=== PATIENT | male | born 1950 | race Caucasian/White ===

== ENCOUNTER 2019-07-12 08:24 | Inpatient (IN) ==
--- NOTE | 2019-07-04 20:54 | PAT Medication Instructions ---
Medication Instructions Date of Service July 04, 2019 Home Medications amlodipine 10 mg PO QAM atorvastatin [Lipitor] 20 mg PO QAM cyanocobalamin (vitamin B-12) 1,000 mcg PO QAM finasteride 5 mg PO HS gabapentin 300 mg PO QAM glimepiride 4 mg PO QAM magnesium 250 mg PO QAM multivitamin 1 tab PO QAM naproxen sodium [Aleve] 440 mg PO TID PRN omeprazole 20 mg PO 3XWK tamsulosin 0.4 mg PO HS Continue as directed omeprazole 20 mg PO 3XWK ASK your surgeon for instructions naproxen sodium [Aleve] 440 mg PO TID PRN DO NOT take the morning of surgery cyanocobalamin (vitamin B-12) 1,000 mcg PO QAM glimepiride 4 mg PO QAM magnesium 250 mg PO QAM multivitamin 1 tab PO QAM Take morning of surgery With a small sip of water, OTHERWISE NOTHING TO EAT OR DRINK AFTER MIDNIGHT: amlodipine 10 mg PO QAM atorvastatin [Lipitor] 20 mg PO QAM gabapentin 300 mg PO QAM Take evening before surgery finasteride 5 mg PO HS tamsulosin 0.4 mg PO HS Other Notes If you have any questions please call us at [phone] or [phone] or [phone] or [phone]
--- NOTE | 2019-07-05 13:57 | Anesthesiology Consultation ---
Date of Service July 05, 2019 Assessment & Plan (1) Encounter for pre-operative examination: - Check BSG AM DOS Chart Review Chart Review: Acceptable Risk for Surgery (cleared for surgery; robby sloan), Pending: Refer to Additional Notes / Consult section (pending preop testing (labs, EKG, CXR)) and Patient seen in Pre Admission Testing Teaching & Discussion Pre-Anesthesia Teaching/Discussion Notes: Instructed NPO after midnight before surgery,except medications with 15 cc of water. Medication instructions provided according to the PAT guidelines. History Surgery Operation Date: 07/12/19 10:05 Proposed Procedures p L4-L5 Decompression and Fusion, Spinal Cord Monitoring - Jc Galeas, Height/Weight Height: 5 ft 6 in Weight: 97.4 kg Allergies Allergy/AdvReac Type Severity Reaction Status Date / Time No Known Drug Allergies Allergy Unknown . Verified 06/30/19 08:21 Medications Home Medications Medication Instructions Recorded Confirmed Last Taken amlodipine 10 mg PO QAM 06/30/19 06/30/19 Unknown atorvastatin [Lipitor] 20 mg PO QAM 06/30/19 06/30/19 Unknown cyanocobalamin (vitamin B-12) 1,000 mcg PO QAM 06/30/19 06/30/19 Unknown finasteride 5 mg PO HS 06/30/19 06/30/19 Unknown gabapentin 300 mg PO QAM 06/30/19 06/30/19 Unknown glimepiride 4 mg PO QAM 06/30/19 06/30/19 Unknown magnesium 250 mg PO QAM 06/30/19 06/30/19 Unknown multivitamin 1 tab PO QAM 06/30/19 06/30/19 Unknown naproxen sodium [Aleve] 440 mg PO TID PRN 06/30/19 06/30/19 Unknown omeprazole 20 mg PO 3XWK 06/30/19 06/30/19 Unknown tamsulosin 0.4 mg PO HS 06/30/19 06/30/19 Unknown Past Medical History Medical History Arthritis BPH (benign prostatic hyperplasia) Chronic back pain RLE/groin radiculopathy Diabetes mellitus, type 2 NIDDM GERD (gastroesophageal reflux disease) controlled Hyperlipidemia Hypertension Kidney stones Obesity Sleep apnea CPAP Exercise / Class Metabolic Activity II 4-5 Yardwork/Stairs/Walk up hill Past Family History Family History Mother Family history of diabetes mellitus Past Surgical History Surgical History History of appendectomy History of colonoscopy Past Anesthesia History No Hx of Anesthesia Complications and No Family Hx of Anesthesia Complications History of PONV No Hx of PONV and No Hx of Motion Sickness Social History Smoking Status: Current every day smoker tobacco type: cigars Smoking cigarettes per day: 10 "SMALL" CIGARS/DAY X 65 YRS Do You Dip or Chew Tobacco: No Hx Alcohol Use: No Hx Substance Use: No Review of Systems Reflux controlled. Patient denies chest pain, shortness of breath, dyspnea on exertion, cough, wheezing, palpitations. Physical Exam Vital Signs VITALS BP 133/78 P 80 TEMP 98.4 SP02 96%RA RESP 18 PHYSICAL Mildly decreased cervical extension (2/2 arthritis per patient) Full TMJ range of motion. TMD 3 finger breaths Mallampati Score 2 Dentition: upper full denture, lower sides/molars missing Lungs: clear throughout to auscultation Cardiac: regular rate and rhythm, no murmurs noted Spine: normal Carotid arteries: negative bruit Extremities: no edema Testing Laboratory Results 07/05/19 14:14 07/05/19 14:14 PT 11.7 Seconds (9.0-12.0) 07/05/19 14:14 INR 1.2 (0.9-1.1) H 07/05/19 14:14 APTT 26.9 Seconds (21.0-31.0) 07/05/19 14:14 Hemoglobin A1c 6.9 % (4.5-5.6) H 07/05/19 14:14 Urine Color Yellow 07/05/19 14:14 Urine Appearance Clear (Clear) 07/05/19 14:14 Urine pH 7.0 (4.5-7.5) 07/05/19 14:14 Ur Specific [place] 1.027 (1.000-1.030) 07/05/19 14:14 Urine Protein Negative (Negative) 07/05/19 14:14 Urine Glucose (UA) 3+ (Negative) H 07/05/19 14:14 Urine Ketones Negative (Negative) 07/05/19 14:14 Urine Nitrite Negative (Negative) 07/05/19 14:14 Ur Leukocyte Esterase Negative (Negative) 07/05/19 14:14 Blood Type B Negative 07/05/19 14:14 Antibody Screen NEGATIVE 07/05/19 14:14 Electrocardiogram Date: 07/05/19 Findings: + NSR @ (75) Chest X-Ray Date: 07/05/19 Findings: + NAD
--- NOTE | 2019-07-05 14:39 | XRay Report ---
XR chest Pre-admission PA/Lat CLINICAL HISTORY: PAT preoperative COMPARISON STUDY: No previous studies for comparison. FINDINGS: The bones soft tissues and hemidiaphragms are normal. The cardiomediastinal silhouette is n ormal. The lungs are clear. The pulmonary vasculature is normal. IMPRESSION: Negative chest. The above report was generated using voice recognition software. It may contain grammatical, syntax or spelling errors. Electronically signed by: Donnie Nayak M.D. 07/05/2019 2:38 PM
[2019-07-05 15:22] LABS: Appearance Urine Clear (Clear); Bilirubin Urine Negative (Negative); Blood Urine Negative (Negative); Color Urine Yellow; Glucose Urine UA 3+ (Negative); Ketones Urine Negative (Negative); Leukocyte Esterase Urine Negative (Negative); Nitrite Urine Negative (Negative); Protein Urine Negative (Negative); Specific Gravity Urine 1.027 (1.000-1.030); Urobilinogen Urine Negative (Negative)
[2019-07-05 15:24] LABS: Basophils # (auto) 0.02 K/uL (0-0.2); Basophils % (auto) 0.3 %; Eosinophils # (auto) 0.16 K/uL (0-0.5); Eosinophils % (auto) 2.1 %; Hematocrit (blood only) 45.5 % (42-52); Hemoglobin 16.5 g/dL (14.0-18.0); Immature Granulocytes # (auto) 0.02 K/uL (0.00-0.02); Immature Granulocytes % (auto) 0.3 %; Lymphocytes # (auto) 1.88 K/uL (1.2-3.4); Lymphocytes % (auto) 24.8 %; Mean Corpuscular Hemoglobin 31.9 pg (25-34); Mean Corpuscular Hgb Conc 36.3 g/dL (32-36); Mean Platelet Volume 11.4 fL (7.4-10.4); Monocytes % (auto) 6.6 %; Neutrophils % (auto) 65.9 %; Platelet Count 159 K/uL (130-400); RDW Coefficient of Variation 13.5 % (11.5-14.5); RDW Standard Deviation 43.7 fL (36.4-46.3); Red Blood Count 5.17 M/uL (4.7-6.1); White Blood Count 7.58 K/uL (4.8-10.8)
[2019-07-05 15:27] LABS: BUN Creatinine Ratio 18.1 (10-20); Calcium 8.9 mg/dl (8.5-10.1); Creatinine Clr Calc Pharmacy 82.5 ml/min; Est GFR (African American) 98.6; Est GFR (Non-African American) 85.1; Potassium 3.7 mmol/L (3.5-5.1)
[2019-07-05 15:31] LABS: Estimated Average Glucose 151 mg/dl; Hemoglobin A1C 6.9 % (4.5-5.6)
[2019-07-05 15:33] LABS: INR 1.2 (0.9-1.1); Partial Thromboplastin Time 26.9 Seconds (21.0-31.0); Prothrombin Time 11.7 Seconds (9.0-12.0)
[~2019-07-12 08:24] MED LIST: ACETAMINOPHEN 500 MG TAB PO SCH; CEFAZOLIN 2000MG 2,000 MG/15 ML SYR IV SCH; CeleBREX 200 MG CAP PO SCH; DEXAMETHASONE SOD INJ 4 MG/ML VIAL ONE; GABAPENTIN 300 MG CAP PO SCH; HYDROmorphone INJ 2 MG/ML SYR/VIAL ONE; LIDOCAINE HCL 2% 2 ML VIAL/AMP(20MG/ML) INFIL ONE; LR 500ML BOLUS IV SCH; MIDAZOLAM HCL 1 MG/ML 2ML VIAL ONE; ONDANSETRON INJ 2 MG/ML 2 ML VIAL ONE; PROPOFOL IV EMULSION 10 MG/ML 20 ML VIAL IV ONE; fentaNYL citrate 100 MCG/2 ML VIAL ONE
--- NOTE | 2019-07-12 09:21 | History & Physical Bridge Note ---
Date of Service July 12, 2019 History & Physical Bridge Note I have examined the patient, reviewed the History & Physical and in the interval since the performance of the History & Physical I have noted the following changes of clinical significance: no changes noted
--- NOTE | 2019-07-12 09:22 | History & Physical Report ---
Date of Service July 12, 2019 Assessment & Plan (1) Neurogenic claudication due to lumbar spinal stenosis: L4-L5 decompression and fusion Present on Admission?: Yes History of Present Illness Chief Complaint: Back and leg pain Primary Care Provider: Claude Montez MD This is a 69-year-old male who presents with chronic persistent back and leg pain. After failing extensive course of nonoperative care is here for surgical intervention. Allergies Allergy/AdvReac Type Severity Reaction Status Date / Time No Known Drug Allergies Allergy Unknown . Verified 06/30/19 08:21 Home Medications Home Medications Medication Instructions Recorded Confirmed Type amlodipine 10 mg PO QAM 06/30/19 07/12/19 History atorvastatin [Lipitor] 20 mg PO QAM 06/30/19 07/12/19 History cyanocobalamin (vitamin B-12) 1,000 mcg PO QAM 06/30/19 07/12/19 History finasteride 5 mg PO HS 06/30/19 07/12/19 History gabapentin 300 mg PO QAM 06/30/19 07/12/19 History glimepiride 4 mg PO QAM 06/30/19 07/12/19 History magnesium 250 mg PO QAM 06/30/19 07/12/19 History multivitamin 1 tab PO QAM 06/30/19 07/12/19 History naproxen sodium [Aleve] 440 mg PO TID PRN 06/30/19 07/12/19 History omeprazole 20 mg PO 3XWK 06/30/19 07/12/19 History tamsulosin 0.4 mg PO HS 06/30/19 07/12/19 History Past Med/Surg History Medical History Arthritis BPH (benign prostatic hyperplasia) Chronic back pain RLE/groin radiculopathy Diabetes mellitus, type 2 NIDDM GERD (gastroesophageal reflux disease) controlled Hyperlipidemia Hypertension Kidney stones Obesity Sleep apnea CPAP Surgical History History of appendectomy History of colonoscopy Family History Mother Family history of diabetes mellitus Social History Preferred Language: Serbian Communication Ability: Effective Nurses' Association Counselor Required: No Beliefs That Will Affect Care: None Current Living Situation: Spouse Other Information That Helps Us Care for You: No Feels Safe at Home: Yes Safety Concerns: Feels Safe At This Time Smoking Status: Current every day smoker Tobacco Type: cigars ; Cigarettes Per Day: 10 "SMALL" CIGARS/DAY X 65 YRS ; Do You Dip or Chew Tobacco: No ; Second Hand Exposure: No ; Hx Alcohol Use: No Hx Substance Use: No Physical Exam Physical Exam: Patient is alert and oriented neurologically intact. Results & Data Vital Signs (Past 12 Hours) Vital Signs Temp Pulse Resp BP Pulse Ox 07/12/19 09:10 36.7 C 73 20 129/63 98
[2019-07-12] MEDS ORDERED: BUPIVACAINE/EPINEPHRINE 0.5% MPF 1:200,000 30 ML VIAL ONE (09:35)
[2019-07-12] MEDS ORDERED: BACITRACIN INJ 50,000 UNIT VIAL ONE (09:35)
[2019-07-12] MEDS ORDERED: ePHEDrine sulfate 50 MG/ML AMP IV PRN (09:40)
[2019-07-12] MEDS ORDERED: HYDROmorphone INJ 2 MG/ML SYR/VIAL IV PRN (09:40)
[2019-07-12] MEDS ORDERED: ONDANSETRON INJ 2 MG/ML 2 ML VIAL IV PRN ×2 (09:40→12:49)
[2019-07-12] MEDS ORDERED: ATROPINE SULFATE 0.1 MG/ML 10ML SYR IV PRN (09:40)
[2019-07-12] MEDS ORDERED: fentaNYL citrate 100 MCG/2 ML VIAL IV PRN (09:40)
[2019-07-12] MEDS ORDERED: FLOSEAL HEMOSTATIC MATRIX 10ML TOP ONE (10:23)
[2019-07-12] MEDS ORDERED: ROCURONIUM BROMIDE 10 MG/ML 5 ML VIAL ONE (10:27)
[2019-07-12] MEDS ORDERED: ePHEDrine sulfate 50 MG/ML SYR ONE (10:27)
[2019-07-12] MEDS ORDERED: PHENYLEPHRINE 100MCG/ML 5ML SYR ONE (10:54)
[2019-07-12] MEDS ORDERED: NEOSTIGMINE METHYLSULFATE 1 MG/ML 10ML VIAL ONE (10:54)
[2019-07-12] MEDS ORDERED: GLYCOPYRROLATE 0.2 MG/ML VIAL ONE (10:54)
--- NOTE | 2019-07-12 11:45 | Operative Report ---
Post Operative Report Pre & Post Diagnosis Operation Date: 07/12/19 10:05 Pre-Op Diagnosis: LUMBAR SPINAL STENOSIS L4-L5 WITH NEUROGENIC CLAUDICATION Spondylolisthesis L4-5. Post-Op Diagnosis: Same Procedure Operation Date: 07/12/19 10:05 Actual Procedures #1 Bilateral medial facetectomies foraminotomies L3-4 L4-5 per #2 posterior spinal fusion L4-5 per #3 placed posterior instrumentation L4-5 per #4 interbody fusion L4-5 per #5 placement of titanium 14 x 26 mm cage at L4-5 per #6 placement of local autograft in the posterior lateral gutters per #7 placement infuse collagen sponge, master graft in the posterior lateral gutters and ostial amp and interbody space. Surgeon Jc Galeas, New Car Inspector Cristina Miranda Estimated Blood Loss 100 Findings See Below The patient is 5 foot 6 inches tall weighing over 97 kg with a BMI in excess of 34. The patient's body habitus created significant technical difficulty throughout the procedure requiring her deepest retractors and longus instruments in order to perform. This added at least 50% increase in operative time. Specimens None Indications This is a 69-year-old male who presents with above-mentioned diagnosis after failing extensive course of nonoperative care is here for surgical intervention. Description of Procedure Patient was met with identified and informed consent obtained. Patient was then taken to the operative suite underwent intubation placed in a prone position the Jovanny table on top of the Geovani frame. All bony prominences well-padded eyes inspected to ensure no external pressure placed upon the peer at this point the lumbar spine was prepped and draped in normal sterile fashion. Sharp dissection with the assistance of Bovie cautery was performed down to and exposing the lamina and transverse process of L4-L5 bilaterally. Significant facet hypertrophy was noted. A complete laminectomy of L4 partial laminectomy of L3 was performed from a caudal cephalad fashion addressing severe bilateral lateral recess and foraminal disease. Pedicle screws were then placed. By way of a transforaminal approach on the right complete discectomy was performed endplates curetted to subcortical being bone and a 14 x 26 mm titanium cage filled with osteo-amp bone graft tapped in position. The rods were then compressed locked into final position bilaterally. Transverse processes of L4 and L5 bur to subcortical bleeding bone. Infuse collagen sponge master graft and local autograft placed in the posterior lateral gutters. 15 round SYDNIE drain inserted. The incision was then closed with 1 Vicryl in the fascia 2-0 Vicryl subcutaneous layer and 4-0 Monocryl for final skin closure. Steri-Strip sterile dressing was placed. Patient awakened taken to PACU stable condition. Please note Cristina Miranda present throughout the entire procedure involved in patient positioning complex portions of the surgery and final skin closure. Lastly spinal cord monitoring was utilized that the procedure no changes noted. I attest to the content of the Intraoperative Record and any orders documented therein. Any exceptions are noted below.
--- NOTE | 2019-07-12 11:53 | Fluoroscopy Report ---
LUMBAR SPINE, INTRAOPERATIVE FLUOROSCOPY HISTORY: L4-5 decompression and fusion. FLUOROSCOPY TIME: 12 seconds. FINDINGS: Intraoperative fluoroscopy was provided for the lumbar spine. 2 fluoroscopic spot images we re obtained. Posterior decompression fusion at L4-5 with pedicle screws and rods. The hardware appear s intact. IMPRESSION: Fluoroscopy provided for a L4-5 posterior decompression and fusion. Electronically signed by: Silvano Norton M.D. 07/12/2019 11:52 AM
[2019-07-12] MEDS ORDERED: ACETAMINOPHEN 1,000 MG/100 ML VIAL IV PRN (12:49)
[2019-07-12] MEDS ORDERED: DO NOT ADMINISTER PNEUMOCOCCAL VACCINE PRN (12:49)
[2019-07-12] MEDS ORDERED: DO NOT ADMINISTER FLU VACCINE PRN (12:49)
[2019-07-12] MEDS ORDERED: LORazepam 0.5 MG TAB PO PRN (12:49)
[2019-07-12] MEDS ORDERED: SOD PHOSPHATE/SOD BIPHOSPHATE ENEMA 132 ML BTL PR PRN (12:49)
[2019-07-12] MEDS ORDERED: bisacodyL 10 MG SUPP PR PRN (12:49)
[2019-07-12] MEDS ORDERED: NALOXONE HCL 0.4 MG/1 ML VIAL/CARP IV PRN (12:49)
[2019-07-12] MEDS ORDERED: ONDANSETRON 4 MG TAB PO PRN (12:49)
[2019-07-12] MEDS ORDERED: MAGNESIUM HYDROXIDE SUSP 30 ML UDC PO PRN (12:49)
[2019-07-12] MEDS ORDERED: METOCLOPRAMIDE HCL INJ 5 MG/ML 2 ML VIAL IV PRN (12:49)
[2019-07-12] MEDS ORDERED: ALUMINUM/MAGNESIUM SUSP 30 ML UDC PO PRN (12:49)
[2019-07-12] MEDS ORDERED: PROMETHAZINE HCL 12.5 MG in SODIUM CHLORIDE 0.9% 50 ML IV PRN (12:49)
[2019-07-12] MEDS ORDERED: HYDROmorphone INJ 0.5 MG/0.5 ML SYR IV PRN (12:49)
[2019-07-12] MEDS ORDERED: ACETAMINOPHEN 500 MG TAB PO PRN (12:49)
[2019-07-12] MEDS ORDERED: LORazepam 0.5 MG/1 ML VIAL IV PRN (12:49)
[2019-07-12] MEDS ORDERED: FAMOTIDINE 20 MG TAB PO PRN (12:49)
[2019-07-12] MEDS: SODIUM CHLORIDE 0.9% 1000ML 1,000 ML IV SCH ×2 (13:21→21:27)
--- NOTE | 2019-07-12 13:26 | Hospitalist Consultation ---
Date of Consultation July 12, 2019 Assessment & Plan (1) Neurogenic claudication due to lumbar spinal stenosis: s/p L4-5 decompression and fusion on 07/12 As per ortho Pre-op Hb 16.5 (2) KATELYN (obstructive sleep apnea): Has home CPAP which he is compliant with (3) Hyperlipidemia: continue home meds (4) HTN (hypertension): continue home meds (5) GERD (gastroesophageal reflux disease): continue home meds (6) DM type 2 (diabetes mellitus, type 2): PO agents only at baseline SSI PRN A1c 6.9 (7) BPH (benign prostatic hyperplasia): continue home meds (8) Nicotine abuse: Nicotine patch if ortho allows (9) DVT prophylaxis: As per ortho History of Present Illness Attending Physician: Jc Galeas DO History of Present Illness 69 y/o M who was admitted on 07/12 s/p L4-5 decompression and fusion with Dr. Galeas. Pt is doing well post-op other than he is having a high amount of back pain. He has alerted nursing and is awaiting medication for this. He has a tray in front of him but has not attempted PO intake due to not feeling hungry or like eating. Pt denies fever, SOB, chest pain, abd pain, n/v/c/d, LE pain and swelling. Allergies Allergy/AdvReac Type Severity Reaction Status Date / Time No Known Drug Allergies Allergy Unknown . Verified 06/30/19 08:21 Home Medications Home Medications Medication Instructions Recorded Confirmed Type amlodipine 10 mg PO QAM 06/30/19 07/12/19 History atorvastatin [Lipitor] 20 mg PO QAM 06/30/19 07/12/19 History cyanocobalamin (vitamin B-12) 1,000 mcg PO QAM 06/30/19 07/12/19 History finasteride 5 mg PO HS 06/30/19 07/12/19 History gabapentin 300 mg PO QAM 06/30/19 07/12/19 History glimepiride 4 mg PO QAM 06/30/19 07/12/19 History magnesium 250 mg PO QAM 06/30/19 07/12/19 History multivitamin 1 tab PO QAM 06/30/19 07/12/19 History naproxen sodium [Aleve] 440 mg PO TID PRN 06/30/19 07/12/19 History omeprazole 20 mg PO 3XWK 06/30/19 07/12/19 History tamsulosin 0.4 mg PO HS 06/30/19 07/12/19 History Patient History Medical History Arthritis BPH (benign prostatic hyperplasia) Chronic back pain RLE/groin radiculopathy Diabetes mellitus, type 2 NIDDM GERD (gastroesophageal reflux disease) controlled Hyperlipidemia Hypertension Kidney stones Sleep apnea CPAP Obesity Surgical History History of appendectomy History of colonoscopy Family History Mother Family history of diabetes mellitus Myocardial infarction Father Myocardial infarction Social History Preferred Language: Arabic Communication Ability: Effective Hospice Care Consultant Required: No Beliefs That Will Affect Care: None Current Living Situation: Spouse Other Information That Helps Us Care for You: No Feels Safe at Home: Yes Safety Concerns: Feels Safe At This Time Smoking Status: Current every day smoker Tobacco Type: cigars ; Cigarettes Per Day: 10 "SMALL" CIGARS/DAY X 65 YRS ; Do You Dip or Chew Tobacco: No ; Second Hand Exposure: No ; Hx Alcohol Use: No Hx Substance Use: No Review of Systems Review of Systems: Pertinent positives and negatives reviewed in HPI--all others negative Physical Exam Constitutional: WD/WN, vitals as above Eyes: normal visual morales by confrontation and + anicteric sclerae Neck: normal visual inspection and trachea midline Respiratory: normal respiratory effort, lungs clear to auscultation Cardiovascular: Rate/Rhythm: regular rate and regular rhythm Gastrointestinal (Abdomen): Inspection/Auscultation: abdomen not distended Percussion/Palpation: abdomen soft; abdomen nontender Musculoskeletal: Head/Neck/Chest: normocephalic and head atraumatic negative for edema, peripheral pulses intact Skin: no rashes, warm and dry Neurologic: awake; not confused Speech / Cognition: normal speech Psychiatric: A+Ox3, euthymic affect Results & Data Vital Signs (Past 12 Hours) Vital Signs Temp Pulse Pulse Resp BP Pulse Ox 07/12/19 13:19 75 15 121/68 98 07/12/19 12:50 36.5 C 75 16 126/70 99 07/12/19 12:35 36.4 C L 72 16 119/77 98 07/12/19 12:25 70 13 131/70 97 07/12/19 12:15 83 17 135/72 97 07/12/19 12:05 74 13 135/73 99 07/12/19 11:56 36.3 C L 78 12 128/64 97 07/12/19 09:10 36.7 C 73 20 129/63 98 Diagnostic Findings CXR: neg for acute PG Care Time/CCT Total # of Minutes Spent Total Time Spent with Patient: Total time spent is greater than 50% in coordination of care (as documented) at patient's floor/unit and/or counseling patient:
--- NOTE | 2019-07-12 13:30 | Anesthesiology Progress Note ---
Date of Service July 12, 2019 Anesthesia Post Procedure Vital Signs Vital Signs: Temp Pulse Pulse Resp BP Pulse Ox 07/12/19 13:19 75 15 121/68 98 07/12/19 12:50 36.5 C 75 16 126/70 99 07/12/19 12:35 36.4 C L 72 16 119/77 98 07/12/19 12:25 70 13 131/70 97 07/12/19 12:15 83 17 135/72 97 07/12/19 12:05 74 13 135/73 99 07/12/19 11:56 36.3 C L 78 12 128/64 97 07/12/19 09:10 36.7 C 73 20 129/63 98 Pain Intensity Lower Back: Pain Intensity: 6 Transfer of Care Handoff Completed per policy Notes Mental Status: alert / awake / arousable and participated in evaluation Patient Amnestic to Procedure: Yes Nausea / Vomiting: adequately controlled Pain: adequately controlled Airway Patency, RR, SpO2: stable & adequate BP & HR: stable & adequate Hydration State: stable & adequate Anesthetic Complications: no major complications apparent and Pt Satisfied with anesthetic care
[2019-07-12] MEDS: KETOROLAC TROMETHAMINE 15 MG/ML VIAL IV SCH ×2 (13:50→21:09)
[2019-07-12] MEDS: PANTOprazole 40 MG TAB PO SCH (13:50)
[2019-07-12] MEDS: TRAMADOL HCL 50 MG TABLET PO PRN (14:11)
[2019-07-12] MEDS: OXYCODONE HCL IR 5 MG TAB (IMMEDIATE RELEASE) PO PRN (16:54)
[2019-07-12] MEDS ORDERED: GLUCAGON FOR INJ 1 MG VIAL SQ PRN (17:58)
[2019-07-12] MEDS ORDERED: GLUCOSE 40% GEL 15 GM TUBE PO PRN (17:58)
[2019-07-12] MEDS ORDERED: CARBOHYDRATES FOR HYPOGLYCEMIA PO PRN (17:58)
[2019-07-12] MEDS ORDERED: GLUCOSE 10 TABS/TUBE PO PRN (17:58)
[2019-07-12] MEDS ORDERED: DEXTROSE 50% 50 ML SYRINGE IV PRN (17:58)
[2019-07-12] MEDS: CEFAZOLIN 2000MG 2,000 MG/15 ML SYR IV SCH (18:27)
[2019-07-12] MEDS: INSULIN ASPART 100 UNITS/ML 3 ML PEN SC SCH ×2 (18:45→21:20)
[2019-07-12] MEDS ORDERED: INSULIN ASPART 100 UNITS/ML 3 ML PEN SC SCH (21:00)
[2019-07-12] MEDS: FINASTERIDE 5 MG TAB PO SCH (21:10)
[2019-07-12] MEDS: DOCUSATE SODIUM/SENNA 50/8.6MG TAB PO SCH (21:10)
[2019-07-12] MEDS: TAMSULOSIN HCL 0.4 MG CAP PO SCH (21:10)
[2019-07-13] MEDS: CEFAZOLIN 2000MG 2,000 MG/15 ML SYR IV SCH (01:29)
[2019-07-13] MEDS: KETOROLAC TROMETHAMINE 15 MG/ML VIAL IV SCH ×2 (01:29→08:29)
[2019-07-13] MEDS: SODIUM CHLORIDE 0.9% 1000ML 1,000 ML IV SCH (03:47)
[2019-07-13] MEDS: OXYCODONE HCL IR 5 MG TAB (IMMEDIATE RELEASE) PO PRN ×3 (05:51→22:42)
[2019-07-13] MEDS: POLYETHYLENE (MIRALAX) 17 GM PACK PO SCH ×4 (05:51→22:42)
[2019-07-13 06:41] LABS: Hematocrit (blood only) 39.2 % (42-52); Hemoglobin 14.2 g/dL (14.0-18.0); Immature Granulocytes # (auto) 0.02 K/uL (0.00-0.02); Immature Granulocytes % (auto) 0.2 %; Lymphocytes # (auto) 1.21 K/uL (1.2-3.4); Lymphocytes % (auto) 9.7 %; Mean Corpuscular Hemoglobin 31.6 pg (25-34); Mean Corpuscular Hgb Conc 36.2 g/dL (32-36); Mean Corpuscular Volume 87.3 fL (80-100); Mean Platelet Volume 11.3 fL (7.4-10.4); Monocytes # (auto) 0.83 K/uL (0.11-0.59); Monocytes % (auto) 6.7 %; Neutrophils # (auto) 10.36 K/uL (1.4-6.5); Neutrophils % (auto) 83.4 %; Platelet Count 147 K/uL (130-400); RDW Standard Deviation 41.8 fL (36.4-46.3); Red Blood Count 4.49 M/uL (4.7-6.1); White Blood Count 12.42 K/uL (4.8-10.8)
[2019-07-13 07:10] LABS: BUN Creatinine Ratio 24.1 (10-20); Calcium 8.7 mg/dl (8.5-10.1); Creatinine Clr Calc Pharmacy 88.3 ml/min; Est GFR (African American) 102.3; Est GFR (Non-African American) 88.3; Potassium 4.1 mmol/L (3.5-5.1)
[2019-07-13] MEDS: MAGNESIUM OXIDE 400 MG TAB PO SCH (08:28)
[2019-07-13] MEDS: GABAPENTIN 300 MG CAP PO SCH (08:28)
[2019-07-13] MEDS: ATORVASTATIN 20 MG TAB PO SCH (08:29)
[2019-07-13] MEDS: AMLODIPINE BESYLATE 5 MG TAB PO SCH (08:29)
[2019-07-13] MEDS: GLIMEPIRIDE 2 MG TAB PO SCH (08:29)
[2019-07-13] MEDS: MULTIVITAMIN TAB PO SCH (08:29)
[2019-07-13] MEDS: CYANOCOBALAMIN 500 MCG TABLET (VITAMIN B-12) PO SCH (08:29)
[2019-07-13] MEDS: INSULIN ASPART 100 UNITS/ML 3 ML PEN SC SCH ×4 (08:32→21:03)
--- NOTE | 2019-07-13 08:35 | Orthopedic Progress Note ---
Date of Service July 13, 2019 Assessment & Plan (1) Neurogenic claudication due to lumbar spinal stenosis: This time initiate physical therapy advance his bowel regiment hopefully discharge home next few days. Present on Admission?: Yes Subjective Back pain is controlled leg pain improved. Physical Exam Physical Exam: Patient is sitting upright in bed. He has good strength testing. Appears comfortable. Results & Data Vital Signs (Past 12 Hours) Vital Signs Temp Pulse Resp BP Pulse Ox 07/13/19 07:19 36.6 C 66 16 120/69 94 07/13/19 03:46 36.8 C 74 16 130/72 96 07/12/19 23:10 37.2 C 84 16 124/65 97
--- NOTE | 2019-07-13 08:48 | Anesthesiology Progress Note ---
Date of Service July 13, 2019 Anesthesia Post Procedure Vital Signs Vital Signs: Temp Pulse Pulse Resp BP Pulse Ox 07/13/19 07:19 36.6 C 66 16 120/69 94 07/13/19 03:46 36.8 C 74 16 130/72 96 07/12/19 23:10 37.2 C 84 16 124/65 97 07/12/19 19:18 36.7 C 83 16 132/68 95 07/12/19 15:48 36.7 C 84 16 122/64 95 07/12/19 15:11 36.5 C 79 16 134/75 94 07/12/19 13:50 84 20 132/75 95 07/12/19 13:19 75 15 121/68 98 07/12/19 12:50 36.5 C 75 16 126/70 99 07/12/19 12:35 36.4 C L 72 16 119/77 98 07/12/19 12:25 70 13 131/70 97 07/12/19 12:15 83 17 135/72 97 07/12/19 12:05 74 13 135/73 99 07/12/19 11:56 36.3 C L 78 12 128/64 97 07/12/19 09:10 36.7 C 73 20 129/63 98 Pain Intensity Lower Back: Pain Intensity: 5 Notes Mental Status: alert / awake / arousable Patient Amnestic to Procedure: Yes Nausea / Vomiting: adequately controlled Pain: improving with treatment Airway Patency, RR, SpO2: stable & adequate BP & HR: stable & adequate Hydration State: stable & adequate Anesthetic Complications: no major complications apparent
[2019-07-13] MEDS: DOCUSATE SODIUM/SENNA 50/8.6MG TAB PO SCH (21:02)
[2019-07-13] MEDS: FINASTERIDE 5 MG TAB PO SCH (21:02)
[2019-07-13] MEDS: TAMSULOSIN HCL 0.4 MG CAP PO SCH (21:02)
[2019-07-14] MEDS: POLYETHYLENE (MIRALAX) 17 GM PACK PO SCH ×2 (05:55→13:09)
[2019-07-14] MEDS: AMLODIPINE BESYLATE 5 MG TAB PO SCH (08:42)
[2019-07-14] MEDS: MAGNESIUM OXIDE 400 MG TAB PO SCH (08:42)
[2019-07-14] MEDS: MULTIVITAMIN TAB PO SCH (08:42)
[2019-07-14] MEDS: CYANOCOBALAMIN 500 MCG TABLET (VITAMIN B-12) PO SCH (08:43)
[2019-07-14] MEDS: PANTOprazole 40 MG TAB PO SCH (08:43)
[2019-07-14] MEDS: GABAPENTIN 300 MG CAP PO SCH (08:43)
[2019-07-14] MEDS: ATORVASTATIN 20 MG TAB PO SCH (08:43)
[2019-07-14] MEDS: GLIMEPIRIDE 2 MG TAB PO SCH (08:43)
[2019-07-14] MEDS: INSULIN ASPART 100 UNITS/ML 3 ML PEN SC SCH ×4 (08:45→21:12)
[2019-07-14] MEDS: TRAMADOL HCL 50 MG TABLET PO PRN ×3 (08:45→21:11)
--- NOTE | 2019-07-14 13:58 | Orthopedic Progress Note ---
Date of Service July 14, 2019 Assessment & Plan (1) Neurogenic claudication due to lumbar spinal stenosis: This time we will continue physical therapy monitor his SYDNIE output anticipate discharge home tomorrow. Present on Admission?: Yes Subjective Back and leg pain is markedly improved. Physical Exam Physical Exam: Patient is in the chair at bedside. Is good strength testing. Appears comfortable. Results & Data Vital Signs (Past 12 Hours) Vital Signs Temp Pulse Resp BP Pulse Ox 07/14/19 07:55 36.7 C 61 16 123/79 99
[2019-07-14] MEDS: FINASTERIDE 5 MG TAB PO SCH (21:09)
[2019-07-14] MEDS: DOCUSATE SODIUM/SENNA 50/8.6MG TAB PO SCH (21:09)
[2019-07-14] MEDS: TAMSULOSIN HCL 0.4 MG CAP PO SCH (21:09)
--- NOTE | 2019-07-14 22:59 | Hospitalist Progress Note ---
Date of Service July 14, 2019 Assessment & Plan (1) Neurogenic claudication due to lumbar spinal stenosis: Medicine will sign off. No new issues s/p L4-5 decompression and fusion on 07/12 As per ortho (2) KATELYN (obstructive sleep apnea): Has home CPAP which he is compliant with. (3) Hyperlipidemia: continue home meds (4) HTN (hypertension): continue home meds (5) GERD (gastroesophageal reflux disease): continue home meds (6) DM type 2 (diabetes mellitus, type 2): PO agents only at baseline SSI PRN A1c 6.9 (7) BPH (benign prostatic hyperplasia): continue home meds (8) Nicotine abuse: Nicotine patch if ortho allows (9) DVT prophylaxis: As per ortho Subjective Patient has no new complaints today. Review of Systems Review of Systems: All systems reviewed & are unremarkable except as noted in HPI & below Physical Exam Physical Exam: Constitutional: WD/WN, vitals as above Eyes: normal visual morales by confrontation and + anicteric sclerae Neck: normal visual inspection and trachea midline Respiratory: normal respiratory effort, lungs clear to auscultation Cardiovascular: Rate/Rhythm: regular rate and regular rhythm Gastrointestinal (Abdomen): Inspection/Auscultation: abdomen not distended Percussion/Palpation: abdomen soft; abdomen nontender Musculoskeletal: Head/Neck/Chest: normocephalic and head atraumatic negative for edema, peripheral pulses intact Skin: no rashes, warm and dry Neurologic: awake; not confused Speech / Cognition: normal speech Psychiatric: A+Ox3, euthymic affect Results & Data Vital Signs (Past 12 Hours) Vital Signs Temp Pulse Resp BP BP Pulse Ox 07/14/19 15:22 100/61 07/14/19 15:17 36.6 C 66 16 97/58 L 96 PG Care Time/CCT Total # of Minutes Spent Total Time Spent with Patient: Total time spent is greater than 50% in coordination of care (as documented) at patient's floor/unit and/or counseling patient:
[2019-07-15] MEDS: AMLODIPINE BESYLATE 5 MG TAB PO SCH (08:59)
[2019-07-15] MEDS: TRAMADOL HCL 50 MG TABLET PO PRN (08:59)
[2019-07-15] MEDS: ATORVASTATIN 20 MG TAB PO SCH (08:59)
[2019-07-15] MEDS: MAGNESIUM OXIDE 400 MG TAB PO SCH (09:00)
[2019-07-15] MEDS: GLIMEPIRIDE 2 MG TAB PO SCH (09:00)
[2019-07-15] MEDS: GABAPENTIN 300 MG CAP PO SCH (09:00)
[2019-07-15] MEDS: CYANOCOBALAMIN 500 MCG TABLET (VITAMIN B-12) PO SCH (09:00)
[2019-07-15] MEDS: MULTIVITAMIN TAB PO SCH (09:01)
[2019-07-15] MEDS: INSULIN ASPART 100 UNITS/ML 3 ML PEN SC SCH (09:02)
--- NOTE | 2019-07-15 11:59 | Discharge Summary ---
Date of Service July 15, 2019 Admission HPI Per Admitting Provider This is a 69-year-old male who presents with chronic persistent back and leg pain. After failing extensive course of nonoperative care is here for surgical intervention. Principal Diagnosis Lumbar spinal stenosis with neurogenic claudication Discharge Data Allergies Allergy/AdvReac Type Severity Reaction Status Date / Time No Known Drug Allergies Allergy Unknown . Verified 06/30/19 08:21 Consultations 07/12/19 12:49 Consult Case Management - Discharge Planning Routine Consult Hospitalist Routine Procedures Performed Operation Date: 07/12/19 10:05 Actual Procedures p L4-L5 Decompression and Fusion, Spinal Cord Monitoring - Jc Galeas DO Ordered Studies 07/12/19 10:05 FL fluoroscopy <1hr Routine FL lumbar spine 2-3V Routine Hospital Course (1) Neurogenic claudication due to lumbar spinal stenosis: Patient underwent lumbar decompression fusion tolerated as well as taken to orthopedic for possibly. Postop pain when he was up and ambulating nicely. Progressive postop day #2. SYDNIE to decreasing appropriately. Subsequently discharged home postop day #3 he did demonstrate neurologically intact ambulate in halls. . Discharge orders instructions from the chart for further review. Total Time Total Time Spent Total Time Spent (In Minutes): 20 minutes Discharge Plan Discharge Items Patient Disposition: Home - Self-Care Reason For Visit: LUMBAR SPINAL STENOSIS W/NEUROGENIC CLAUDICATION Discharge Diagnosis: Lumbar spinal stenosis with neurogenic claudication Activity: Per Instructions section Non-emergency contact: Primary Care Provider Call non-emergency contact if: you have any medication questions Follow-up/Referrals: Claude Montez MD [Primary Care Provider] - Diet: Regular Addtl Attending Provider Instructions: ACTIVITY RECOMMENDATIONS: SELF CARE INSTRUCTIONS AFTER THORACIC/LUMBAR FUSIONS 1. You may walk to your tolerance. It is good exercise for your legs and back. Expect some back and intermittent leg aches and pains. 2. You may perform "counter-top" level activities (make a sandwich, matt with a project, etc.). 3. No bending or lifting of more than 10 pounds or back twisting of any nature (roll like a log when turning in bed). 4. You may ride in a car for 20-30 minutes at a time. No driving until after your first visit with your doctor. 5. Frequent changes of position and restricting sitting to 30 minutes at a time will help limit the amount of back spasms and stiffness you may experience. 6. You may discontinue the use of ambulatory aids (cane, crutches, etc.) once your strength and confidence allow. 7. You may engineering test mechanic the shower and let water strike your incision when you arrive home at least once daily. Do not take a tub bath, sit in a hot tub or go into a swimming pool until after your first recheck in the office. SPECIAL CARE INSTRUCTIONS: VERY IMPORTANT TO READ AND REVIEW A. Your surgical incision has been closed with a cosmetic suture under the skin that will dissolve in about 6 weeks. In 14 days, you can use a pair of clean scissors and cut the suture that is left outside of the skin at the ends of your incision. 1. The small skin tapes can be removed 7 days after surgery if they have not fallen off by that point. 2. You may keep the wound open to air as much as possible to promote healing after post-op day number 5 unless told otherwise by your doctor. 3. If you think the wound looks like it is becoming infected (redness or worsening drainage) and/or you are experiencing fever, chill or worsening back pain and muscle spasms, contact the office so that we may evaluate you as soon as possible. B. Complications are uncommon, but please contact us if you have any signs or symptoms of: 1. wound infection (fever higher than 102.5 degrees F, redness, separation of wound, drainage, or increasing pain from the incision) 2. blood clots in legs (pain, swelling, redness and warmth in legs) 3. urinary tract infection (fever higher than 102.5 degrees F, burning upon urination or increased frequency of urination) 4. nerve problems (inability to walk on your toes or heels, numbness, loss of bowel or bladder control) 5. any other symptoms that concern you C. Please call the office at if you have any concerns or questions about your operation or recovery. D. No smoking! Smoking drastically decreases the chance of a solid fusion. E. Do not take any anti-inflammatory medications (Indocin, Advil, Motrin, Aspir in, Naprosyn, etc.) as these may inhibit the chance of a solid fusion. Tylenol is okay to take for pain. MANAGING PAIN AFTER SPINAL SURGERY 1. Narcotic medication is intended for short-term use and will be provided for surgical pain. Surgical pain usually lasts for a period of 4-6 weeks. Narcotic medication includes Percocet, Vicodin, Darvocet, Tylenol #3 or Lortab. 2. Longer-term pain is more appropriately treated with non-narcotic medication such as Tylenol ES. 3. Muscle spasm is not appropriately treated with narcotics. Muscle relaxers such as Soma, Flexeril or Skelaxin can be used along with Tylenol ES. 4. Remember that we all live with some "aches and pains". This is not unusual or uncommon after an injury or as we get older. a. Back pain is expected and may include muscle spasms for 4 to 6 weeks after surgery. The pain should gradually improve. If the pain worsens for no apparent reason, please contact the office. b. Intermittent leg pain may also be experienced and should not be concerned about unless it worsens for no apparent reason. If so, please contact the office. 5. We will provide appropriate medication within the normal guidelines of their prescribed use. We will also be very cautious and aware of potential abuse and extended duration of patients' medication needs. a. Pain medications are for your comfort and to assist with sleep and rest so that the tissue can heal. They are not provided in order to return to normal activity and should not be used through the day. To do so or worsening pain at night can result from ongoing tissue damage and development of tolerance to the prescribed medicine. 6. Please allow 2-3 days to process refills. Prescriptions will not be mailed but must be picked up at the office. FOLLOW UP VISIT: Keep your scheduled follow-up appointment. Any questions, please call the office at . Pending Studies at Discharge: No Stand-Alone Forms: My [facility], Opioid Pain Management Medications and DC Order Prescriptions: New tramadol 50 mg Tablet 50 mg PO Q4H PRN (Reason: Pain, Moderate) Qty: 30 RF: 0 oxycodone 5 mg Tablet 5 mg PO Q4H PRN (Reason: Pain, Severe) Qty: 30 RF: 0 Continued multivitamin Tablet 1 tab PO QAM RF: 0 atorvastatin [Lipitor] 20 mg Tablet 20 mg PO QAM RF: 0 amlodipine 10 mg Tablet 10 mg PO QAM RF: 0 omeprazole 20 mg Capsule,Delayed Release(Dr/Ec) 20 mg PO 3XWK RF: 0 magnesium 250 mg Tablet 250 mg PO QAM RF: 0 tamsulosin 0.4 mg Capsule 0.4 mg PO HS RF: 0 glimepiride 4 mg Tablet 4 mg PO QAM RF: 0 gabapentin 100 mg Capsule 300 mg PO QAM RF: 0 finasteride 5 mg Tablet 5 mg PO HS RF: 0 naproxen sodium [Aleve] 220 mg Capsule 440 mg PO TID PRN (Reason: Pain) RF: 0 cyanocobalamin (vitamin B-12) 1,000 mcg Capsule 1,000 mcg PO QAM RF: 0 Discharge Orders: Discharge Order (Routine); Ordered 07/15/19 Ordered By: Jc Wade/Other Patient Handouts: DVT Prevent Admission Data Admit Date/Time: 07/12/19 11:49 Attending Provider: Jc Galeas Admit Provider: Jc Galeas Primary Care Provider: Claude Montez Other Providers: Girish Pierre Other Interventions: Discharge Summary Assessment (RN) Last Done: 07/15/19 10:22 DC Date/Time DO NOT enter until pt leaves facility: 07/15/19 11:49
== END 2019-07-15 11:49 | disposition home or self-care (01) | DRG 455 ==
LOC: ASU 08:24 → 3E 11:49
DX: E78.5 Hyperlipidemia, unspecified; I10 Essential (primary) hypertension; N40.0 Benign prostatic hyperplasia without lower urinary tract symptoms; E11.9 Type 2 diabetes mellitus without complications; K21.9 Gastro-esophageal reflux disease without esophagitis; M48.062 Spinal stenosis, lumbar region with neurogenic claudication; Z68.34 Body mass index [BMI] 34.0-34.9, adult; Z79.899 Other long term (current) drug therapy; Z79.84 Long term (current) use of oral hypoglycemic drugs; E66.9 Obesity, unspecified; F17.290 Nicotine dependence, other tobacco product, uncomplicated; G47.33 Obstructive sleep apnea (adult) (pediatric)

== ENCOUNTER 2019-09-19 17:20 | Inpatient (IN) ==
[2019-09-19] MEDS ORDERED: SODIUM CHLORIDE 0.9% 1000ML 1,000 ML IV ONE (17:50)
[2019-09-19 18:15] LABS: Basophils # (auto) 0.01 K/uL (0-0.2); Basophils % (auto) 0.1 %; Eosinophils # (auto) 0.05 K/uL (0-0.5); Eosinophils % (auto) 0.7 %; Hematocrit (blood only) 39.2 % (42-52); Immature Granulocytes # (auto) 0.03 K/uL (0.00-0.02); Immature Granulocytes % (auto) 0.4 %; Lymphocytes # (auto) 0.64 K/uL (1.2-3.4); Lymphocytes % (auto) 8.4 %; Mean Corpuscular Hemoglobin 30.4 pg (25-34); Mean Corpuscular Hgb Conc 35.7 g/dL (32-36); Mean Corpuscular Volume 85.2 fL (80-100); Mean Platelet Volume 11.1 fL (7.4-10.4); Monocytes % (auto) 7.9 %; Neutrophils # (auto) 6.29 K/uL (1.4-6.5); Neutrophils % (auto) 82.5 %; Platelet Count 108 K/uL (130-400); RDW Coefficient of Variation 13.1 % (11.5-14.5); RDW Standard Deviation 40.5 fL (36.4-46.3); White Blood Count 7.62 K/uL (4.8-10.8)
[2019-09-19] MEDS ORDERED: ONDANSETRON INJ 2 MG/ML 2 ML VIAL IV STA (18:48)
[2019-09-19] MEDS ORDERED: MoRPHine SULFATE 4 MG/ML 1 ML CARP\\VIAL IV STA (18:48)
[2019-09-19 19:07] LABS: Albumin Globulin Ratio 0.8 (0.9-2); Albumin Level 3.1 gm/dl (3.4-5.0); BUN Creatinine Ratio 17.4 (10-20); Bilirubin,Total 0.8 mg/dl (0.2-1); Calcium 8.9 mg/dl (8.5-10.1); Creatinine Clr Calc Pharmacy 74.2 ml/min; Est GFR (African American) 90.2; Est GFR (Non-African American) 77.8; Globulin 3.9 gm/dl (2.5-4.0); Potassium 3.5 mmol/L (3.5-5.1)
[2019-09-19] MEDS ORDERED: NovoLIN-R INSULIN PER UNIT CHARGE IV STA ×2 (19:13→19:27)
[2019-09-19] MEDS ORDERED: cefTRIAXone SODIUM 1,000 MG/50 ML BAG IV STA (19:17)
[2019-09-19 19:20] LABS: Beta-Hydroxybutyrate 3.63 mg/dl (0.2-2.81)
[2019-09-19] MEDS ORDERED: HYDROmorphone INJ 0.5 MG/0.5 ML SYR IV STA (19:27)
--- NOTE | 2019-09-19 19:49 | Emergency Department Note ---
Entered by Angelina Mortensen acting as a scribe for Uriel Manrique DO History of Present Illness General Chief complaint: Urinary Symptoms Stated complaint: UTI, SYMPTOMS WORSE TODAY History of Present Illness Provider complaint: urinary symptoms Onset (ago): day(s) 3 Pain Consistency: + other (worsening) Maximum Pain Intensity: 5 Quality: + other (urinary symptoms) Relieved By: not by medication (antibiotics) Associated symptoms: + fever/chills (102.8 F) and + other (burning upon urination, increased urinary frequency, urinating every 30 minutes, diagnosed with UTI, back pain 10 weeks post surgery) The patient is a 69 year old male with PMHx of GERD, hypertension, chronic back pain and kidney stones who presents to the ED with complaints of worsening urinary symptoms that started 3 days ago. The patient states that he has burning upon urination, increased urinary frequency and abdominal pain. The patient states that he urinates approximately every 30 minutes. The patient states that he has also had chills and a fever of 102.8 F. The patient states that he was seen here yesterday for the same reason and was diagnosed with a UTI. The patient states that he was prescribed antibiotics and he has started taking them but he denies relief. The patient states that he also has back pain because he had back surgery approximately 10 weeks ago. Home Medications Home Medications Medication Instructions Recorded Confirmed Type amlodipine [Norvasc] 10 mg PO QAM 06/30/19 09/19/19 History atorvastatin [Lipitor] 20 mg PO QAM 06/30/19 09/19/19 History cyanocobalamin (vitamin B-12) 1,000 mcg PO QAM 06/30/19 09/19/19 History finasteride [Proscar] 5 mg PO HS 06/30/19 09/19/19 History gabapentin [Neurontin] 300 mg PO QAM 06/30/19 09/19/19 History glimepiride [Amaryl] 4 mg PO QAM 06/30/19 09/19/19 History magnesium 250 mg PO QAM 06/30/19 09/19/19 History multivitamin 1 tab PO QAM 06/30/19 09/19/19 History omeprazole 20 mg PO 3XWK 06/30/19 09/19/19 History tamsulosin [Flomax] 0.4 mg PO HS 06/30/19 09/19/19 History cefdinir 300 mg PO BID 10 Days #20 cap 09/18/19 09/19/19 Rx phenazopyridine [Pyridium] 200 mg PO TID PRN 09/19/19 09/19/19 History Allergies Allergy/AdvReac Type Severity Reaction Status Date / Time No Known Drug Allergies Allergy Unknown . Verified 09/19/19 17:59 Past Med/Surg History Medical History (Updated 09/19/19 @ 20:10 by Uriel Manrique DO) Arthritis BPH (benign prostatic hyperplasia) Chronic back pain RLE/groin radiculopathy Diabetes mellitus, type 2 NIDDM GERD (gastroesophageal reflux disease) controlled Hyperlipidemia Hypertension Kidney stones Obesity Sleep apnea CPAP Surgical History (Updated 09/19/19 @ 20:02 by Angelina Mortensen) History of appendectomy History of back surgery History of colonoscopy Social History Preferred Language: French Communication Ability: Effective Pcat Instructor Required: No Beliefs That Will Affect Care: None marital status: Current Living Situation: Spouse Feels Safe at Home: Yes Smoking Status: Former smoker Tobacco Type: cigars ; Cigarettes Per Day: 10 "SMALL" CIGARS/DAY X 65 YRS ; Second Hand Exposure: No ; Hx Alcohol Use: No Hx Substance Use: No Review of Systems See HPI for pertinent positives & negatives. and A total of 10 systems reviewed and were otherwise negative Physical Exam Vital Signs Vital Signs - 24 hr 09/19/19 17:27 09/19/19 18:17 09/19/19 18:30 Temperature 37.8 C H Temperature Source Oral Pulse Rate 93 H Pulse Rate [Apical] 87 89 Pulse Rhythm [Apical] Regular Regular Respiratory Rate 18 18 18 Respiratory Effort / Characteristics Non-Labored Spontaneous Non-Labored Spontaneous Respiratory Depth Normal Normal Respiratory Pattern Regular Regular Blood Pressure 117/65 Blood Pressure [Left Arm] 131/76 149/77 H Blood Pressure Mean 82 Blood Pressure Mean [Left Arm] 94 101 Blood Pressure Position Sitting Pulse Oximetry 98 94 94 Oxygen Delivery Method Room Air Room Air Room Air Sepsis Recent Fever Within 48 Hours No Sepsis Action Taken by Nursing No Action Required 09/19/19 19:32 09/19/19 19:36 Temperature 37.7 C H Temperature Source Oral Pulse Rate Pulse Rate [Apical] 85 Pulse Rhythm [Apical] Respiratory Rate 26 H Respiratory Effort / Characteristics Respiratory Depth Normal Respiratory Pattern Blood Pressure Blood Pressure [Left Arm] 140/66 Blood Pressure Mean Blood Pressure Mean [Left Arm] 90 Blood Pressure Position Pulse Oximetry 95 Oxygen Delivery Method Room Air Sepsis Recent Fever Within 48 Hours Sepsis Action Taken by Nursing GENERAL: Sitting up in bed, alert, mild distress EYE EXAM: normal conjunctiva. OROPHARYNX: no exudate, no erythema, lips, buccal mucosa, and tongue normal and mucous membranes are moist NECK: supple, no nuchal rigidity, no adenopathy, non-tender LUNGS: Clear to auscultation. Normal chest wall mechanics HEART: no murmurs, S1 normal and S2 normal ABDOMEN: abdomen soft, non-tender, normo-active bowel sounds, no masses, no rebound or guarding. BACK: Back is symmetrical on inspection and there is no deformity, no midline tenderness, no CVA tenderness, old midline incision SKIN: no rashes and no bruising UPPER EXTREMITIES: upper extremities are grossly normal. LOWER EXTREMITIES: No pitting edema. NEURO EXAM: Normal sensorium, cranial nerves II-XII grossly intact, normal speech, no gross weakness of arms, no gross weakness of legs. Course Course ED COURSE: Vital signs were reviewed and showed tachycardia and febrile The patients medical record was reviewed The above diagnostic studies were performed and reviewed. ED treatments and interventions as stated above. 173: The patient was evaluated in room A09B. A complete history and physical examination was performed. 1900: I updated the patient on the test results. He states that he is having more back pain. 1915: I reevaluated the patient and he states that he is not feeling well and would like to stay in the hospital. 1917: I discussed the patient's case with Dr. Wolf [facility] Hospitalist. He will evaluate the patient for further management. 192: Upon reevaluation, the patient is still experiencing discomfort. I discussed my findings with the patient and he understands and agrees with the treatment plan. Based on the patients age, coexisting illnesses, exam and lab findings the decision to treat as an inpatient was made. The patient remained stable while under my care. The patient will be evaluated for further management. Consultations Consultation #1: I discussed the patient's case with Dr. Wolf [facility] Hospitalist. He will evaluate the patient for further management. Time: 19:18 Administered Medications Discontinued Medications Hydromorphone HCl (Dilaudid) 0.5 mg IV NOW STA Stop: 09/19/19 19:28 Last Admin: 09/19/19 19:33 Dose: Not Given Documented by: [id number] Sodium Chloride (Nss 1000ml) 1,000 mls @ 999 mls/hr IV .Q1H1M ONE Stop: 09/19/19 18:50 Last Infusion: 09/19/19 19:26 Dose: 0 mls/hr Documented by: [id number] Admin: 09/19/19 18:25 Dose: 999 mls/hr Documented by: [id number] Ceftriaxone Sodium (Rocephin) 1,000 mg in 50 mls @ 100 mls/hr IV NOW STA Stop: 09/19/19 19:46 Last Admin: 09/19/19 19:33 Dose: Not Given Documented by: [id number] Insulin Human Regular (Novolin R U-100 Per Unit) 10 units IV NOW STA Stop: 09/19/19 19:14 Last Admin: 09/19/19 19:39 Dose: Not Given Documented by: [id number] Insulin Human Regular (Novolin R U-100 Per Unit) 4 units IV NOW STA Stop: 09/19/19 19:28 Last Admin: 09/19/19 19:33 Dose: 4 units Documented by: [id number] Cosigned by: [id number] Morphine Sulfate (Morphine Sulfate) 4 mg IV NOW STA Stop: 09/19/19 18:49 Last Admin: 09/19/19 18:53 Dose: 4 mg Documented by: [id number] Ondansetron HCl (Zofran) 4 mg IV NOW STA Stop: 09/19/19 18:49 Last Admin: 09/19/19 18:53 Dose: 4 mg Documented by: [id number] Medical Decision Making Differential Diagnosis Differential diagnoses includes but is not limited to gastritis, peptic ulcer disease, GERD, gallbladder disease, pancreatitis, small bowel obstruction, acute coronary syndrome, pericarditis, ischemic bowel, irritable bowel disease, irritable bowel syndrome, appendicitis, diverticulitis, malignancy, hernia, u rinary tract infection, torsion, perforation, trauma, infectious. Medical Records Attestation: I reviewed the patient's medical records. Home Medications Current Medication List: was personally reviewed by me Laboratory Data Attestation: I reviewed the patient's lab results. Result diagrams: 09/19/19 18:05 09/19/19 18:05 Lab Results 09/19/19 09/19/19 09/19/19 Range/Units 18:05 18:05 18:05 WBC 7.62 (4.8-10.8) K/uL RBC 4.60 L (4.7-6.1) M/uL Hgb 14.0 (14.0-18.0) g/dL Hct 39.2 L (42-52) % MCV 85.2 (80-100) fL MCH 30.4 (25-34) pg MCHC 35.7 (32-36) g/dL RDW Std Deviation 40.5 (36.4-46.3) fL RDW Coeff of Danielito 13.1 (11.5-14.5) % Plt Count 108 L (130-400) K/uL MPV 11.1 H (7.4-10.4) fL Immature Gran % (Auto) 0.4 % Neut % (Auto) 82.5 % Lymph % (Auto) 8.4 % Nye % (Auto) 7.9 % Eos % (Auto) 0.7 % Baso % (Auto) 0.1 % Immature Gran # (Auto) 0.03 H (0.00-0.02) K/uL Neut # (Auto) 6.29 (1.4-6.5) K/uL Lymph # (Auto) 0.64 L (1.2-3.4) K/uL Nye # (Auto) 0.60 H (0.11-0.59) K/uL Eos # (Auto) 0.05 (0-0.5) K/uL Baso # (Auto) 0.01 (0-0.2) K/uL Sodium 136 (136-145) mmol/L Potassium 3.5 (3.5-5.1) mmol/L Chloride 106 (98-107) mmol/L Carbon Dioxide 21 (21-32) mmol/L Anion Gap 9.0 (3-11) BUN 17 (7-18) mg/dl Creatinine 0.98 (0.6-1.4) mg/dl Est Cr Clr Drug Dosing 74.2 ml/min Est GFR ( Amer) 90.2 Est GFR (Non-Af Amer) 77.8 BUN/Creatinine Ratio 17.4 (10-20) Glucose 424 H* (70-99) mg/dl POC Glucose (70-99) Lactate 1.7 (0.4-2.0) mmol/L Calcium 8.9 (8.5-10.1) mg/dl Total Bilirubin 0.8 D (0.2-1) mg/dl AST 23 (15-37) U/L ALT 56 (12-78) U/L Alkaline Phosphatase 138 H (45-117) U/L Total Protein 7.0 (6.4-8.2) gm/dl Albumin 3.1 L (3.4-5.0) gm/dl Globulin 3.9 (2.5-4.0) gm/dl Albumin/Globulin Ratio 0.8 L (0.9-2) Lipase 289 (73-393) U/L Beta-Hydroxybutyric Acd 3.63 H (0.2-2.81) mg/dl 09/19/19 Range/Units 19:20 WBC (4.8-10.8) K/uL RBC (4.7-6.1) M/uL Hgb (14.0-18.0) g/dL Hct (42-52) % MCV (80-100) fL MCH (25-34) pg MCHC (32-36) g/dL RDW Std Deviation (36.4-46.3) fL RDW Coeff of Danielito (11.5-14.5) % Plt Count (130-400) K/uL MPV (7.4-10.4) fL Immature Gran % (Auto) % Neut % (Auto) % Lymph % (Auto) % Nye % (Auto) % Eos % (Auto) % Baso % (Auto) % Immature Gran # (Auto) (0.00-0.02) K/uL Neut # (Auto) (1.4-6.5) K/uL Lymph # (Auto) (1.2-3.4) K/uL Nye # (Auto) (0.11-0.59) K/uL Eos # (Auto) (0-0.5) K/uL Baso # (Auto) (0-0.2) K/uL Sodium (136-145) mmol/L Potassium (3.5-5.1) mmol/L Chloride (98-107) mmol/L Carbon Dioxide (21-32) mmol/L Anion Gap (3-11) BUN (7-18) mg/dl Creatinine (0.6-1.4) mg/dl Est Cr Clr Drug Dosing ml/min Est GFR ( Amer) Est GFR (Non-Af Amer) BUN/Creatinine Ratio (10-20) Glucose (70-99) mg/dl POC Glucose 318 H* (70-99) Lactate (0.4-2.0) mmol/L Calcium (8.5-10.1) mg/dl Total Bilirubin (0.2-1) mg/dl AST (15-37) U/L ALT (12-78) U/L Alkaline Phosphatase (45-117) U/L Total Protein (6.4-8.2) gm/dl Albumin (3.4-5.0) gm/dl Globulin (2.5-4.0) gm/dl Albumin/Globulin Ratio (0.9-2) Lipase (73-393) U/L Beta-Hydroxybutyric Acd (0.2-2.81) mg/dl Blood Pressure Blood Pressure Findings: Elevated blood pressure Blood Pressure Disposition: further management by hospitalist NADYA Narrative Patient is a 69-year-old male that presents the ER who was just seen here yesterday for urinary symptoms. He has been having fevers at home of 102. IV was established blood work was obtained. Labs show no significant leukocytosis as this is improved down from 16-7. He was taking steroids yesterday and this could have been the cause of that. No significant anemia. BMP was unremarkable with exception of glucose of 424. Patient was given IV fluids and glucose trended down to 318. I gave him 4 units IV insulin. Lactate was negative. Bilirubin and LFTs were unremarkable. Beta hydroxybutyric was slightly elevated at 3.6. Lipase was unremarkable. Patient was given a IV Rocephin. He was given IV morphine and Dilaudid. He was updated bedside. Previous urine from yesterday grew out greater than 100,000 E. coli. Favor back pain is likely musculoskeletal but treated him as a prostatitis and David. CT performed yesterday was reviewed and unremarkable although performed without contrast. Patient was updated at bedside and discussed with the hospitalist patient was admitted for further work-up. Impression & Plan Sepsis, Prostatitis, UTI (urinary tract infection), Hyperglycemia Discharge Plan Visit Data Chief Complaint: Urinary Symptoms Stated Complaint: UTI, SYMPTOMS WORSE TODAY ED Provider: Uriel Manrique Discharge Problem: Sepsis, Prostatitis, UTI (urinary tract infection), Hyperglycemia Patient Disposition: Being Evaluated by Hospitalist Forms Stand Alone Forms: My [facility] Prescriptions Prescriptions: No Action cefdinir 300 mg capsule 300 mg PO BID 10 Days Qty: 20 RF: 0 multivitamin Tablet 1 tab PO QAM RF: 0 atorvastatin [Lipitor] 20 mg Tablet 20 mg PO QAM RF: 0 amlodipine [Norvasc] 10 mg Tablet 10 mg PO QAM RF: 0 omeprazole 20 mg Capsule,Delayed Release(Dr/Ec) 20 mg PO 3XWK RF: 0 magnesium 250 mg Tablet 250 mg PO QAM RF: 0 tamsulosin [Flomax] 0.4 mg Capsule 0.4 mg PO HS RF: 0 glimepiride [Amaryl] 4 mg Tablet 4 mg PO QAM RF: 0 gabapentin [Neurontin] 100 mg Capsule 300 mg PO QAM RF: 0 finasteride [Proscar] 5 mg Tablet 5 mg PO HS RF: 0 cyanocobalamin (vitamin B-12) 1,000 mcg Capsule 1,000 mcg PO QAM RF: 0 phenazopyridine [Pyridium] 200 mg tablet 200 mg PO TID PRN (Reason: Pain) RF: 0 Referrals Referrals: Claude Montez MD [Primary Care Provider] - Discharge Problem: Sepsis Qualifiers: Sepsis type: sepsis due to unspecified organism Sepsis acute organ dysfunction status: unspecified Qualified Code(s): A41.9 - Sepsis, unspecified organism Prostatitis Qualifiers: Prostatitis type: unspecified Qualified Code(s): N41.9 - Inflammatory disease of prostate, unspecified UTI (urinary tract infection) Qualifiers: Urinary tract infection type: site unspecified Hematuria presence: with hematuria Qualified Code(s): N39.0 - Urinary tract infection, site not specified The scribe's documentation has been prepared under my direction and personally reviewed by me in its entirety. I confirm that the note above accurately reflects all work, treatment, procedures, and medical decision making performed by me.
--- NOTE | 2019-09-19 20:22 | History & Physical Report ---
Date of Service September 19, 2019 Assessment & Plan (1) Sepsis: Sepsis due to prostatitis/BPH- Follow urine culture and sensitivity. Initial results suggest an E. coli species. Zosyn 4.5 g IV every 8 hours until full cultures. Continue Schumacher catheter. NSS + KCl 20 mEq at 100 mils per hour. Continue finasteride 5 mg at bedtime and tamsulosin 0.4 mg at bedtime Consult Dr. George from urology Present on Admission?: Yes (2) Prostatitis: See above Present on Admission?: Yes (3) GERD (gastroesophageal reflux disease): Increase omeprazole from 3 times per week to daily. Present on Admission?: Yes (4) HTN (hypertension): Continue amlodipine 10 mg p.o. every morning with hold parameters Present on Admission?: Yes (5) Hyperlipidemia: Continue atorvastatin 20 mg every morning Present on Admission?: Yes (6) KATELYN (obstructive sleep apnea): CPAP at bedtime if needed Present on Admission?: Yes (7) Neurogenic claudication due to lumbar spinal stenosis: Status post surgery with silvia placement by Dr. Galeas about 10 weeks ago. Complaining of some low back pain, may just be referred pain from prostatitis and possible kidney infection. Consult Dr. Galeas. Present on Admission?: Yes (8) Hyperglycemia due to type 2 diabetes mellitus: Glucose of 424, was given 10 units regular insulin IV in the ED, with improvement. AC and at bedtime with NovoLog coverage per scale. Hold glimepiride placed on Accu-Cheks Check hemoglobin A1c Present on Admission?: Yes History of Present Illness Chief Complaint: The patient presents to the emergency department with worsening fevers, chills and urinary frequency and burning. Primary Care Provider: Claude Montez MD The patient is a 69-year-old male with a past medical history including BPH, diabetes mellitus, GERD, hypertension, hyperlipidemia, obstructive sleep apnea, lumbar spinal stenosis with radiculopathy and tobacco use disorder, who was initially seen in emergency department last evening with the symptoms noted above that began 3 to 4 days ago. He was seen in the emergency department last evening, and was given the option of being managed in the hospital, they prefer to go home on antibiotics. He continued to have worsening symptoms and increasing temperature throughout the day today, and re-presents to the emergency department tonight. Allergies Allergy/AdvReac Type Severity Reaction Status Date / Time No Known Drug Allergies Allergy Unknown . Verified 09/19/19 17:59 Home Medications Home Medications Medication Instructions Recorded Confirmed Type amlodipine [Norvasc] 10 mg PO QAM 06/30/19 09/19/19 History atorvastatin [Lipitor] 20 mg PO QAM 06/30/19 09/19/19 History cyanocobalamin (vitamin B-12) 1,000 mcg PO QAM 06/30/19 09/19/19 History finasteride [Proscar] 5 mg PO HS 06/30/19 09/19/19 History gabapentin [Neurontin] 300 mg PO QAM 06/30/19 09/19/19 History glimepiride [Amaryl] 4 mg PO QAM 06/30/19 09/19/19 History magnesium 250 mg PO QAM 06/30/19 09/19/19 History multivitamin 1 tab PO QAM 06/30/19 09/19/19 History omeprazole 20 mg PO 3XWK 06/30/19 09/19/19 History tamsulosin [Flomax] 0.4 mg PO HS 06/30/19 09/19/19 History cefdinir 300 mg PO BID 10 Days #20 cap 09/18/19 09/19/19 Rx phenazopyridine [Pyridium] 200 mg PO TID PRN 09/19/19 09/19/19 History Past Med/Surg History Medical History (Updated 09/20/19 @ 03:13 by Jeff Dillon MD) Arthritis BPH (benign prostatic hyperplasia) Chronic back pain RLE/groin radiculopathy Diabetes mellitus, type 2 NIDDM GERD (gastroesophageal reflux disease) controlled Hyperlipidemia Hypertension Kidney stones Obesity Sleep apnea CPAP Surgical History (Updated 09/19/19 @ 20:02 by Angelina Mortensen) History of appendectomy History of back surgery History of colonoscopy Social History Preferred Language: Divehi Communication Ability: Effective Sales Agent Trading Stamps Required: No Beliefs That Will Affect Care: None marital status: Current Living Situation: Spouse Feels Safe at Home: Yes Safety Concerns: Feels Safe At This Time Smoking Status: Current every day smoker Tobacco Type: cigarettes ; Cigarettes Per Day: 10 ; Second Hand Exposure: No ; Hx Alcohol Use: No Hx Substance Use: No Review of Systems Review of Systems: The patient denies chest pain, palpitations, shortness of breath, dyspnea on exertion, cough, lower extremity swelling, sore throat, nausea, vomiting, diarrhea , constipation, abdominal pain, pelvic pain, blood in urine or stool, lightheadedness, dizziness, headache, memory loss, loss of consciousness, rash, abnormal bruising or bleeding, imbalance, focal weakness, numbness or tingling in arms or legs, generalized arthralgias or myalgias, neck pain, or night sweats. The review of systems is otherwise negative other than for that already noted above, and at least 10 systems have been reviewed. Physical Exam Physical Exam: The patient is awake, alert and oriented 3, normocephalic and atraumatic, lying in bed and in mild to moderate distress secondary to flank pain and urinary discomfort. HEENT--PERRL, EOMI, mucous membranes and oropharynx dry. Neck--supple. No JVD. No bruits. Thyroid normal, trachea midline, no adenopathy. Heart--normal S1 and S2. No murmurs, rubs or gallops. Lungs--clear bilaterally, no respiratory distress, no accessory muscle use. Abdomen--normal bowel sounds and soft. Nontender. Nondistended. Obese. Extremities--no cyanosis or clubbing. No edema. Dermatologic--normal skin turgor, normal color, no abnormal lymph nodes, no rash. Neurologic--cranial nerves II through XII grossly intact. Rheumatologic--normal range of motion. Psychiatric--normal affect. Results & Data Vital Signs (Past 12 Hours) Vital Signs Temp Pulse Pulse Resp BP BP Pulse Ox 09/19/19 19:36 99.9 F H 09/19/19 19:32 85 26 H 140/66 95 09/19/19 18:30 89 18 149/77 H 94 09/19/19 18:17 87 18 131/76 94 09/19/19 17:27 100.0 F H 93 H 18 117/65 98 Laboratory Results Laboratory Results WBC 7.62 K/uL (4.8-10.8) 09/19/19 18:05 RBC 4.60 M/uL (4.7-6.1) L 09/19/19 18:05 Hgb 14.0 g/dL (14.0-18.0) 09/19/19 18:05 Hct 39.2 % (42-52) L 09/19/19 18:05 MCV 85.2 fL (80-100) 09/19/19 18:05 MCH 30.4 pg (25-34) 09/19/19 18:05 MCHC 35.7 g/dL (32-36) 09/19/19 18:05 RDW Std Deviation 40.5 fL (36.4-46.3) 09/19/19 18:05 RDW Coeff of Danielito 13.1 % (11.5-14.5) 09/19/19 18:05 Plt Count 108 K/uL (130-400) L 09/19/19 18:05 MPV 11.1 fL (7.4-10.4) H 09/19/19 18:05 Immature Gran % (Auto) 0.4 % 09/19/19 18:05 Neut % (Auto) 82.5 % 09/19/19 18:05 Lymph % (Auto) 8.4 % 09/19/19 18:05 [place] % (Auto) 7.9 % 09/19/19 18:05 Eos % (Auto) 0.7 % 09/19/19 18:05 Baso % (Auto) 0.1 % 09/19/19 18:05 Immature Gran # (Auto) 0.03 K/uL (0.00-0.02) H 09/19/19 18:05 Neut # (Auto) 6.29 K/uL (1.4-6.5) 09/19/19 18:05 Lymph # (Auto) 0.64 K/uL (1.2-3.4) L 09/19/19 18:05 [place] # (Auto) 0.60 K/uL (0.11-0.59) H 09/19/19 18:05 Eos # (Auto) 0.05 K/uL (0-0.5) 09/19/19 18:05 Baso # (Auto) 0.01 K/uL (0-0.2) 09/19/19 18:05 Sodium 136 mmol/L (136-145) 09/19/19 18:05 Potassium 3.5 mmol/L (3.5-5.1) 09/19/19 18:05 Chloride 106 mmol/L (98-107) 09/19/19 18:05 Carbon Dioxide 21 mmol/L (21-32) 09/19/19 18:05 Anion Gap 9.0 (3-11) 09/19/19 18:05 BUN 17 mg/dl (7-18) 09/19/19 18:05 Creatinine 0.98 mg/dl (0.6-1.4) 09/19/19 18:05 Est Cr Clr Drug Dosing 74.2 ml/min 09/19/19 18:05 Est GFR ( Amer) 90.2 09/19/19 18:05 Est GFR (Non-Af Amer) 77.8 09/19/19 18:05 BUN/Creatinine Ratio 17.4 (10-20) 09/19/19 18:05 Glucose 424 mg/dl (70-99) H* 09/19/19 18:05 POC Glucose 278 (70-99) H 09/19/19 21:45 Lactate 1.7 mmol/L (0.4-2.0) 09/19/19 18:05 Calcium 8.9 mg/dl (8.5-10.1) 09/19/19 18:05 Total Bilirubin 0.8 mg/dl (0.2-1) D 09/19/19 18:05 AST 23 U/L (15-37) 09/19/19 18:05 ALT 56 U/L (12-78) 09/19/19 18:05 Alkaline Phosphatase 138 U/L (45-117) H 09/19/19 18:05 Total Protein 7.0 gm/dl (6.4-8.2) 09/19/19 18:05 Albumin 3.1 gm/dl (3.4-5.0) L 09/19/19 18:05 Globulin 3.9 gm/dl (2.5-4.0) 09/19/19 18:05 Albumin/Globulin Ratio 0.8 (0.9-2) L 09/19/19 18:05 Lipase 289 U/L (73-393) 09/19/19 18:05 Beta-Hydroxybutyric Acd 3.63 mg/dl (0.2-2.81) H 09/19/19 18:05 Diagnostic Findings [facility], [place] [phone] CT Scan Report Patient: STEPHANI ANTONIO Date: 09/18/19 MR#: [id number]: [address] [facility] Acct ID:[id number]: [address] Date: 1950[facility] Zip: [place] [address] Age: 69Location: ED Sex: M Room/Bed: Att Phy:Diagnosis: TROUBLE URINATING, COLD, KIDNEY PAIN [place] Phy: Claude Montez, MDService Date: 09/18/19 Fam Phy:Interpreting Phy: Donnie Nayak MD Admit Phy: Ordering Phy: Jean Taylor M.D. cc: ~ CT abd pelvis wo con CT DOSE: 1138.48 mGy.cm HISTORY: Flank pain poss hydro, right flank pain TECHNIQUE: Multiaxial CT images of the abdomen and pelvis were performed without contrast. A dose lowering technique was utilized adhering to the principles of ALARA. COMPARISON STUDY: None. FINDINGS: Lung bases are clear. Moderate hepatomegaly. Fatty replacement of the liver. Slight splenic prominence and size. Pancreas is unremarkable. The kidneys are considered negative for hydronephrosis or nephrocalcinosis. Trace amount of perinephric fat stranding unremarkable for age. The bowel pattern is nonobstructive. Findings of mild chronic sigmoid diverticulosis. No evidence for acute diverticulitis. No evidence for abscess collection or obstruction. Degenerative and postoperative changes of the thoracolumbar spine are noted. [place], [place] [phone] XRay Report Patient: STEPHANI ANTONIO Date: 09/18/19 MR#: [id number]: [address] [facility] Acct ID:[id number]: [address] Date: 1950[facility] Zip: [place] [address] Age: 69Location: ED Sex: M Room/Bed: Att Phy:Diagnosis: TROUBLE URINATING, COLD, KIDNEY PAIN [place] Phy: Claude Montez, ALISEervice Date: 09/18/19 Fam Phy:Interpreting Phy: Donnie Nayak MD Admit Phy: Ordering Phy: Jean Taylor M.D. cc: ~ XR chest 1V portable CLINICAL HISTORY: Sepsis dyspnea COMPARISON STUDY: 07/05/2019 FINDINGS: The bones soft tissues and hemidiaphragms are normal. The cardiomediastinal silhouette is normal. The lungs are clear. The pulmonary vasculature is normal. IMPRESSION: Negative chest. The above report was generated using voice recognition software. It may contain grammatical, syntax or spelling errors. Electronically signed by: Donnie Nayak M.D. 09/18/2019 9:24 PM Dictated: 09/18/192122 Transcribed: 09/18/192122 Code Status & VTE Plan Code Status Full code VTE Prophylaxis Plan VTE Prophylaxis will be ordered: Yes PG Care Time/CCT Total # of Minutes Spent Total Time Spent with Patient: Total time spent is greater than 50% in coordination of care (as documented) at patient's floor/unit and/or counseling patient: (1) Prostatitis Prostatitis type: unspecified Qualified Code(s): N41.9 - Inflammatory disease of prostate, unspecified (2) Sepsis Sepsis acute organ dysfunction status: unspecified Sepsis type: sepsis due to unspecified organism Qualified Code(s): A41.9 - Sepsis, unspecified organism
[2019-09-19] MEDS: NSS + 20MEQ KCL 20 MEQ/1,000 ML BAG IV SCH (20:33)
[2019-09-19] MEDS ORDERED: ACETAMINOPHEN 325 MG TAB PO STA (20:39)
[2019-09-19] MEDS ORDERED: MAGNESIUM HYDROXIDE SUSP 30 ML UDC PO PRN (21:18)
[2019-09-19] MEDS ORDERED: PIPERACILL/TAZOBAC CONSULT ACTIVE PRN (21:18)
[2019-09-19] MEDS ORDERED: CARBOHYDRATES FOR HYPOGLYCEMIA PO PRN (21:18)
[2019-09-19] MEDS ORDERED: GLUCOSE 40% GEL 15 GM TUBE PO PRN (21:18)
[2019-09-19] MEDS ORDERED: ALUMINUM/MAGNESIUM SUSP 30 ML UDC PO PRN (21:18)
[2019-09-19] MEDS ORDERED: GLUCAGON FOR INJ 1 MG VIAL SQ PRN (21:18)
[2019-09-19] MEDS ORDERED: ONDANSETRON INJ 2 MG/ML 2 ML VIAL IV PRN (21:18)
[2019-09-19] MEDS ORDERED: POLYETHYLENE (MIRALAX) 17 GM PACK PO PRN (21:18)
[2019-09-19] MEDS ORDERED: GLUCOSE 10 TABS/TUBE PO PRN (21:18)
[2019-09-19] MEDS ORDERED: DEXTROSE 50% 50 ML SYRINGE IV PRN (21:18)
[2019-09-19] MEDS ORDERED: PIPERACILLIN/TAZOBACTAM 4.5 GM/120 ML BAG IV ONE (22:00)
[2019-09-19] MEDS: TAMSULOSIN HCL 0.4 MG CAP PO SCH (22:44)
[2019-09-19] MEDS: FINASTERIDE 5 MG TAB PO SCH (22:46)
[2019-09-19] MEDS: INSULIN ASPART 100 UNITS/ML 3 ML PEN SC SCH (22:52)
[2019-09-19] MEDS: HEPARIN SOD 5,000 UNIT/0.5 ML VIAL SQ SCH (22:52)
[2019-09-20] MEDS: HYDROmorphone INJ 0.5 MG/0.5 ML SYR IV PRN ×2 (01:20→10:22)
[2019-09-20] MEDS ORDERED: PIPERACILLIN/TAZOBACTAM 3.375 GM in DEXTROSE 5% 100 ML IV SCH (04:00)
[2019-09-20] MEDS: ACETAMINOPHEN 325 MG TAB PO PRN ×2 (04:23→23:23)
[2019-09-20] MEDS: NSS + 20MEQ KCL 20 MEQ/1,000 ML BAG IV SCH ×2 (06:23→15:39)
[2019-09-20] MEDS: ATORVASTATIN 20 MG TAB PO SCH (07:43)
[2019-09-20] MEDS: CYANOCOBALAMIN 500 MCG TABLET (VITAMIN B-12) PO SCH (07:43)
[2019-09-20] MEDS: MAGNESIUM OXIDE 400 MG TAB PO SCH (07:43)
[2019-09-20] MEDS: AMLODIPINE BESYLATE 5 MG TAB PO SCH (07:43)
[2019-09-20] MEDS: PANTOprazole 40 MG TAB PO SCH (07:44)
[2019-09-20] MEDS: HEPARIN SOD 5,000 UNIT/0.5 ML VIAL SQ SCH ×2 (07:44→20:41)
[2019-09-20] MEDS: MULTIVITAMIN TAB PO SCH (07:44)
[2019-09-20] MEDS: GABAPENTIN 300 MG CAP PO SCH (07:44)
[2019-09-20 07:56] LABS: Estimated Average Glucose 235 mg/dl; Hemoglobin A1C 9.8 % (4.5-5.6)
--- NOTE | 2019-09-20 08:23 | Urology Consultation ---
Date of Consultation September 20, 2019 Assessment & Plan (1) Hyperglycemia: (2) BPH (benign prostatic hyperplasia): (3) UTI (urinary tract infection): (4) Prostatitis: 69yo M with hx BPH, asymmetric prostate; admitted with Ecoli UTI, fevers; suspected prostatitis. VSS, afebrile x24 hours, abd pain improving. UC&S positive for Ecoli BCx prelim negative. CT unremarkable. Still with urinary frequency q30 min and dysuria. Will add pyridium and B&O for dysuria PRN. will check PSA in AM to help confirm diagnosis of prostatitis. AUSTIN deferred due to acute illness. Will check bladder scans qshift x24 hours, straight cath for PVR >400cc. Okay to convert to PO abx, Ciprofloxacin 500mg BID preferred x28 days treatment for suspected prostatitis. Will continue to follow while inpatient. History of Present Illness Reason for Consultation: prostatitis/UTI Requesting Physician: Dr. Prabhakar Attending Physician: Luis Prabhakar History of Present Illness 69yo M with hx of BPH, stones and recent extensive spine surgery in June [address] Galeas, was admitted via ER after visit x2 for dysuria, urinary frequency and fever. Diagnosed with E.Coli UTI, concern for prostatitis. Originally sent home on cefdinir but returned for worsening abdominal pain and spiked fever (Tmax 102.9). CT is unremarkable from standpoint, no abscess formation, no stones nor obstruction. Pt initially reported R flank pain, he states this was due to mechanics from CT scanner, which has no resolved. Now still with dysuria, but abdominal pain has subsided. Pt denies f/c/n/v. He states bladder spasms have also resolved. Chart review: -WBC 11.2 Currently on zosyn IV. Prelim UC&S positive for >100,000 cfu pansensitive E.Coli. Pt follows with Dr. George for asymmetric prostate, discrepancy in size of testis (R>L), ultrasound not concerning for malignancy. Last evaluated in March 2019, finasteride added at that time. Discussed Rezum vs TURP. PVR was excellent at that time, 25cc. Negative prostate biopsy in the past. PSA 3.16 in December 2018. PSA drawn last week for scheduled followup, PSA 1.48 (finasteride adjusted to 2.96) Allergies Allergy/AdvReac Type Severity Reaction Status Date / Time No Known Drug Allergies Allergy Unknown . Verified 09/19/19 17:59 Home Medications Home Medications Medication Instructions Recorded Confirmed Type amlodipine [Norvasc] 10 mg PO QAM 06/30/19 09/19/19 History atorvastatin [Lipitor] 20 mg PO QAM 06/30/19 09/19/19 History cyanocobalamin (vitamin B-12) 1,000 mcg PO QAM 06/30/19 09/19/19 History finasteride [Proscar] 5 mg PO HS 06/30/19 09/19/19 History gabapentin [Neurontin] 300 mg PO QAM 06/30/19 09/19/19 History glimepiride [Amaryl] 4 mg PO QAM 06/30/19 09/19/19 History magnesium 250 mg PO QAM 06/30/19 09/19/19 History multivitamin 1 tab PO QAM 06/30/19 09/19/19 History omeprazole 20 mg PO 3XWK 06/30/19 09/19/19 History tamsulosin [Flomax] 0.4 mg PO HS 06/30/19 09/19/19 History cefdinir 300 mg PO BID 10 Days #20 cap 09/18/19 09/19/19 Rx phenazopyridine [Pyridium] 200 mg PO TID PRN 09/19/19 09/19/19 History Patient History Medical History (Updated 09/20/19 @ 09:37 by DONALD He) Arthritis BPH (benign prostatic hyperplasia) Chronic back pain RLE/groin radiculopathy Diabetes mellitus, type 2 NIDDM GERD (gastroesophageal reflux disease) controlled Hyperlipidemia Hypertension Kidney stones Obesity Sleep apnea CPAP Surgical History (Updated 09/19/19 @ 20:02 by Angelina Mortensen) History of appendectomy History of back surgery History of colonoscopy Social History Preferred Language: Hebrew Communication Ability: Effective Math Instructor Required: No Beliefs That Will Affect Care: None marital status: Current Living Situation: Spouse Feels Safe at Home: Yes Safety Concerns: Feels Safe At This Time Smoking Status: Current every day smoker Tobacco Type: cigarettes ; Cigarettes Per Day: 10 ; Second Hand Exposure: No ; Hx Alcohol Use: No Hx Substance Use: No Review of Systems Review of Systems: Constitutional: Denies fever, chills, sweats, malaise Eyes: Denies problem reported ENMT: Denies dizziness Resp: Denies cough, Denies shortness of breath CV: Denies JVD GI: Denies nausea/vomiting : See HPI MS: Denies swelling, stiffness Integ: Denies rash, erythema Neuro: Denies falls, weakness Psych: Denies behavior change Endo: Denies polyphagia, polydipsia Heme: Denies easy bleeding Physical Exam Constitutional: no acute distress and not ill appearing Eyes: no nystagmus ENMT: Ears: no hearing impairment Neck: trachea midline Respiratory: no respiratory distress and no cough Cardiovascular: Vessels: no JVD Chest (Breasts): Chest: normal inspection of chest Gastrointestinal (Abdomen): Inspection/Auscultation: abdomen not distended and no abdominal edema Percussion/Palpation: abdomen soft; abdomen nontender Musculoskeletal: Head/Neck/Chest: normocephalic and head atraumatic Skin: no rashes, warm and dry Neurologic: awake; not confused and not obtunded Psychiatric: Orientation: alert and oriented x 3 Eye Contact: good eye contact Affect: no depressed affect Genitourinary: bladder normal to inspection; no CVA tenderness Lymphatic: no lymphadenopathy and no lymphedema Results & Data Vital Signs (Past 12 Hours) Vital Signs Temp Pulse Pulse Pulse Resp BP Pulse Ox 09/20/19 07:40 36.8 C 77 18 109/71 95 09/20/19 07:15 76 09/20/19 03:14 37.7 C H 80 19 129/82 93 09/19/19 23:57 89 09/19/19 23:35 38.0 C H 79 19 130/71 92 09/19/19 22:06 105 H 09/19/19 20:35 39.1 C H 92 H 22 144/82 H 93 PG Care Time/CCT Total # of Minutes Spent Total Time Spent with Patient: Total time spent is greater than 50% in coordination of care (as documented) at patient's floor/unit and/or counseling patient: (1) UTI (urinary tract infection) Hematuria presence: with hematuria Urinary tract infection type: site unspecified Qualified Code(s): N39.0 - Urinary tract infection, site not specified; R31.9 - Hematuria, unspecified (2) Prostatitis Prostatitis type: unspecified Qualified Code(s): N41.9 - Inflammatory disease of prostate, unspecified
[2019-09-20] MEDS: cefTRIAXone SODIUM 2,000 MG in DEXTROSE 5% 50 ML IV SCH (08:35)
[2019-09-20] MEDS: INSULIN ASPART 100 UNITS/ML 3 ML PEN SC SCH ×4 (08:37→20:43)
[2019-09-20] MEDS ORDERED: INSULIN GLARGINE SOLOSTAR 100 UNITS/ML 3 ML PEN SC SCH ×2 (09:00→21:00)
[2019-09-20] MEDS ORDERED: BELLADONNA/OPIUM SUPP 60 MG SUPP PR PRN (09:39)
[2019-09-20] MEDS ORDERED: PHENAZOPYRIDINE HCL 200 MG TAB PO PRN (09:39)
[2019-09-20] MEDS: HYDROCODONE/ACETAMOPHEN 5/325MG TAB PO PRN ×2 (16:00→23:36)
--- NOTE | 2019-09-20 20:29 | Hospitalist Progress Note ---
Date of Service September 20, 2019 Assessment & Plan (1) UTI (urinary tract infection): 2nd to e.coli. with concomitant sepsis. improving. can d/c broad-spectrum IV abx; change to rocephin 2gm daily for another 1-2 days. consider [place] to r/o prostatitis while hospitalized as this will change length of PO abx course post-d/c. (2) Sepsis: Sepsis due to UTI +/- prostatitis - improving. Blood cx's from 09/18 thus far negative. Fever improved today. Supportive care. (3) BPH (benign prostatic hyperplasia): With urinary retention today. PVRs were 400-450cc today. Schumacher placed. Following such his and GI symptoms were much better. Cont alpha anand and finasteride. Urology consult appreciated. (4) Prostatitis: This will need to be ruled out. Consider [place] prior to discharge. See "UTI" above. (5) Hyperglycemia due to type 2 diabetes mellitus: A1c is nearly 10%. Add lantus BID and titrate. Increase correction factor and carb ratio on novolog. (6) GERD (gastroesophageal reflux disease): Cont PPI daily (7) HTN (hypertension): Continue norvasc Controlled (8) Hyperlipidemia: Continue atorvastatin daily (9) KATELYN (obstructive sleep apnea): CPAP at bedtime (10) Neurogenic claudication due to lumbar spinal stenosis: Status post lumbar back surgery by Dr. Galeas about 10 weeks ago. Had low back pain at time of ER presentation. Suspect it was from the tract and not the back. During my visit today he did not c/o back pain. Follow for now. (11) Thrombocytopenia: Suspect due to sepsis. Repeat CBC am. Treat UTI/sepsis w/ abx. (12) DVT prophylaxis: heparin SC will obtain PT/OT evals can stop fluids later today if eating ok Subjective patient c/o dysuria, incomplete bladder emptying, suprapubic pain and bloating, and frequency. also with fevers/chills overnight. during my AM assessment he did report feeling better than previous. appetite fair. tele with NSR and trigeminy at times. he reports he has been told "his prostate is as big as a watermelon" and was supposed to have f/u with urology as outpatient in the coming week. h/o kidney stones years ago. Review of Systems Constitutional: + fever and + fatigue Respiratory: no cough and no dyspnea Cardiovascular: no chest pain Gastrointestinal: + bloating and + nausea; no abdominal pain and no vomiting Physical Exam Constitutional: well developed, well nourished and + obese; no acute distress and no altered mental status ENMT: external ear and nose normal, oropharynx normal Respiratory: normal respiratory effort, lungs clear to auscultation Cardiovascular: Rate/Rhythm: regular rate and regular rhythm Heart Sounds: normal S1 and normal S2; no murmur Vessels: posterior tibial pulses present and dorsalis pedis pulses present; no JVD Extremities: no edema Gastrointestinal (Abdomen): Inspection/Auscultation: + abdomen distended Percussion/Palpation: + abdomen tender (suprapubic ); no hepatosplenomegaly Skin: no rashes, warm and dry Psychiatric: A+Ox3, euthymic affect Results & Data Vital Signs (Past 12 Hours) Vital Signs Temp Pulse Pulse Resp BP Pulse Ox 09/20/19 19:51 36.7 C 78 20 126/76 97 09/20/19 15:24 100 H 09/20/19 14:42 37.7 C H 102 H 20 170/79 H 93 09/20/19 12:04 36.9 C 70 18 110/64 98 Laboratory Results Laboratory Results - last 24 hr 09/19/19 09/19/19 09/19/19 18:05 20:32 21:45 POC Glucose 268 H 278 H Estimat Average Glucose 235 Hemoglobin A1c 9.8 H 09/20/19 09/20/19 09/20/19 07:33 11:52 11:53 POC Glucose 270 H 327 H* 324 H* Estimat Average Glucose Hemoglobin A1c 09/20/19 16:18 POC Glucose 213 H Estimat Average Glucose Hemoglobin A1c Diagnostic Findings recent urine cx with e. coli - pansensitive blood cx's negative PG Care Time/CCT Total # of Minutes Spent Total Time Spent with Patient: Total time spent is greater than 50% in coordination of care (as documented) at patient's floor/unit and/or counseling patient: (1) Sepsis Sepsis acute organ dysfunction status: unspecified Sepsis type: sepsis due to unspecified organism Qualified Code(s): A41.9 - Sepsis, unspecified organism (2) Prostatitis Prostatitis type: unspecified Qualified Code(s): N41.9 - Inflammatory disease of prostate, unspecified (3) GERD (gastroesophageal reflux disease) Esophagitis presence: esophagitis presence not specified Qualified Code(s): K21.9 - Gastro-esophageal reflux disease without esophagitis (4) HTN (hypertension) Hypertension type: essential hypertension Qualified Code(s): I10 - Essential (primary) hypertension (5) Hyperlipidemia Hyperlipidemia type: mixed hyperlipidemia Qualified Code(s): E78.2 - Mixed hyperlipidemia (6) Hyperglycemia due to type 2 diabetes mellitus Diabetes mellitus parts counterman insulin use: without prison use Qualified Code(s): E11.65 - Type 2 diabetes mellitus with hyperglycemia (7) BPH (benign prostatic hyperplasia) Lower urinary tract symptom presence: symptoms present Lower urinary tract symptom detail: incomplete bladder emptying Qualified Code(s): N40.1 - Benign prostatic hyperplasia with lower urinary tract symptoms; R39.14 - Feeling of incomplete bladder emptying (8) UTI (urinary tract infection) Urinary tract infection type: acute cystitis Hematuria presence: without hematuria Qualified Code(s): N30.00 - Acute cystitis without hematuria
[2019-09-20] MEDS: TAMSULOSIN HCL 0.4 MG CAP PO SCH (20:41)
[2019-09-20] MEDS: FINASTERIDE 5 MG TAB PO SCH (20:41)
[2019-09-20] MEDS ORDERED: ZOLPIDEM TARTRATE 5 MG TAB PO ONE (21:08)
[2019-09-21 06:44] LABS: Hematocrit (blood only) 40.9 % (42-52); Hemoglobin 14.3 g/dL (14.0-18.0); Mean Corpuscular Hemoglobin 30.2 pg (25-34); Mean Corpuscular Volume 86.5 fL (80-100); Mean Platelet Volume 10.5 fL (7.4-10.4); Platelet Count 115 K/uL (130-400); RDW Coefficient of Variation 13.1 % (11.5-14.5); RDW Standard Deviation 41.7 fL (36.4-46.3); Red Blood Count 4.73 M/uL (4.7-6.1); White Blood Count 5.68 K/uL (4.8-10.8)
[2019-09-21 07:20] LABS: BUN Creatinine Ratio 20.5 (10-20); Calcium 8.7 mg/dl (8.5-10.1); Creatinine Clr Calc Pharmacy 94.7 ml/min; Est GFR (African American) 107.1; Est GFR (Non-African American) 92.4; Potassium 3.3 mmol/L (3.5-5.1)
[2019-09-21 07:25] LABS: Prostate Specific Antigen 18.5 ng/ml (0-4)
[2019-09-21] MEDS ORDERED: INSULIN GLARGINE SOLOSTAR 100 UNITS/ML 3 ML PEN SC SCH (09:00)
[2019-09-21] MEDS: INSULIN ASPART 100 UNITS/ML 3 ML PEN SC SCH ×4 (09:02→20:35)
[2019-09-21] MEDS: POTASSIUM CHLORIDE 20 MEQ TABCR PO SCH ×3 (09:04→20:41)
[2019-09-21] MEDS: HEPARIN SOD 5,000 UNIT/0.5 ML VIAL SQ SCH ×3 (09:04→20:47)
[2019-09-21] MEDS: AMLODIPINE BESYLATE 5 MG TAB PO SCH (09:05)
[2019-09-21] MEDS: MULTIVITAMIN TAB PO SCH (09:05)
[2019-09-21] MEDS: ATORVASTATIN 20 MG TAB PO SCH (09:05)
[2019-09-21] MEDS: GABAPENTIN 300 MG CAP PO SCH (09:05)
[2019-09-21] MEDS: PANTOprazole 40 MG TAB PO SCH (09:06)
[2019-09-21] MEDS: MAGNESIUM OXIDE 400 MG TAB PO SCH (09:06)
--- NOTE | 2019-09-21 09:41 | Urology Progress Note ---
Date of Service September 21, 2019 Assessment & Plan (1) Prostatitis: 69yo M with hx BPH, asymmetric prostate; admitted with Ecoli UTI, fevers; prostatitis. PSA 18.5 as anticipating, confirming diagnosis of acute bacterial prostatits. Fevers last evening, Tmax 38.5 Prakash placed for high PVR, tolerating well. Okay to convert to PO abx, Ciprofloxacin 500mg BID preferred x28 days treatment for suspected prostatitis. Will discuss plan for prakash management and followup with Dr. George, patient's primary urologist today. Will continue to follow while inpatient. Subjective 69 yo M admitted with Ecoli UTI, prostatitis, febrile illness Pt doing better this AM. He did experience fevers and sweats overnight, Tmax 39.5. Prakash placed for high PVR, pt states dysuria improved immediately with placement of catheter. Denies suprapubic pain, or discomfort from catheter. Denies bladder spasms. Draining yellow urine (orange-tinged from Pyridium use). Chart reviewed - leukocytosis resolved. VSS, Cr WNL. PSA grossly elevated to 18.5 as expected in setting of acute prostatitis. BCx prelim no growth x48 hours. UC&S final >100,000cfu pansensitive Ecoli. Pt currently on IV Rocephin Review of Systems Review of Systems: All systems reviewed & are unremarkable except as noted in HPI & below Physical Exam Constitutional: no acute distress and not ill appearing Eyes: no nystagmus ENMT: Ears: no hearing impairment Neck: trachea midline Respiratory: no respiratory distress and no cough Cardiovascular: Vessels: no JVD Chest (Breasts): Chest: normal inspection of chest Gastrointestinal (Abdomen): Inspection/Auscultation: abdomen not distended and no abdominal edema Percussion/Palpation: abdomen soft; abdomen nontender prakash draining yellow/orange urine Musculoskeletal: Head/Neck/Chest: normocephalic and head atraumatic Skin: no rashes, warm and dry Neurologic: awake; not confused and not obtunded Psychiatric: Orientation: alert and oriented x 3 Eye Contact: good eye contact Affect: no depressed affect Genitourinary: bladder normal to inspection; no CVA tenderness Lymphatic: no lymphadenopathy and no lymphedema Results & Data Vital Signs (Past 12 Hours) Vital Signs Temp Pulse Pulse Resp BP Pulse Ox 09/21/19 07:05 37.2 C 79 20 112/72 95 09/21/19 05:00 36.9 C 70 20 111/64 96 09/21/19 01:57 85 09/20/19 23:45 39.5 C H 92 H 20 133/71 93 09/20/19 22:25 85 24 97 PG Care Time/CCT Total # of Minutes Spent Total Time Spent with Patient: Total time spent is greater than 50% in coordination of care (as documented) at patient's floor/unit and/or counseling patient: (1) Prostatitis Prostatitis type: unspecified Qualified Code(s): N41.9 - Inflammatory disease of prostate, unspecified
[2019-09-21] MEDS: cefTRIAXone SODIUM 2,000 MG in DEXTROSE 5% 50 ML IV SCH (10:00)
[2019-09-21] MEDS: CYANOCOBALAMIN 500 MCG TABLET (VITAMIN B-12) PO SCH (11:04)
--- NOTE | 2019-09-21 20:16 | Hospitalist Progress Note ---
Date of Service September 21, 2019 Assessment & Plan (1) UTI (urinary tract infection): Complicated by prostatitis and sepsis. 2nd to e.coli. Resolving. d/c rocephin. change to cipro 500mg BID. Plan for 28-day treatment course in light of complicating prostatitis. Continue prakash (had significant urinary retention). (2) Sepsis: Sepsis due to UTI/prostatitis - improving/resolving. Blood cx's from 09/18 cont to be negative. (3) Prostatitis: Highly suspicious given the markedly elevated PSA in the context of his sepsis/UTI (18.5, as opposed to <2 just a few weeks ago). Will Rx for prostatitis with 28-day course of cipro BID. Change to PO cipro in am. (4) BPH (benign prostatic hyperplasia): With urinary retention. PVRs were 400-450cc. Prakash placed on 09/20. Cont alpha anand and finasteride. Urology consult appreciated. Prakash will remain at discharge. (5) Hyperglycemia due to type 2 diabetes mellitus: A1c is nearly 10%. Patient reports multiple medrol dosepacks this fall for his back and hip. In fact he was on steroids up until this past weekend. Hyperglycemia likely combination of stress from sepsis/UTI, the recent steroids, and overall poorly controlled T2DM. Titrate lantus again today. Titrate correction factor to 10. Titrate carb ratio to 1:3. If these changes don't improve the situation then start insulin infusion late tonight. (6) GERD (gastroesophageal reflux disease): Cont PPI daily (7) HTN (hypertension): Continue norvasc Controlled (8) Hyperlipidemia: Continue atorvastatin daily (9) KATELYN (obstructive sleep apnea): CPAP at bedtime (10) Neurogenic claudication due to lumbar spinal stenosis: Status post lumbar back surgery by Dr. Galeas late June 2019. L4-L5 decompression for spinal stenosis. His location of pain, radiation to the posterior right leg, etc all suggest recurrent l-spine issues. If fevers persist despite the abx for the UTI/prostatitis then I would have low threshold to re-image his L-spine with MRI to r/o diskitis, etc. (11) Thrombocytopenia: Platelet count starting to rebound. Suspect due to sepsis. Repeat CBC am. (12) Bilateral hip joint arthritis: Pain meds prn. (13) DVT prophylaxis: heparin SC cleared by PT/OT for d/c home home next 1-2 days (ideally he has no fever for 24 hours) Subjective overall continues to slowly improve. appetite is good. no fever today; had Tm of 39.5 last pm. no abdominal or pelvic pain. prakash in place. main complaint is that of right "hip" pain. he states the pain is in the right buttock region. radiates down the posterior right leg towards the knee. pain is also located over right SI joint. states he was supposed to have right intra-articular hip injection for "bone on bone" OA tomorrow by pain management. he denies significant right groin pain or right anterior thigh pain. he had back surgery earlier this fall. the symptoms in right leg now are similar to then. records show he had L4-L5 decompression for spinal stenosis. Review of Systems Constitutional: + fever and + fatigue; no chills and no anorexia Respiratory: no cough and no dyspnea Cardiovascular: no chest pain, no dyspnea at rest and no dyspnea on exertion Gastrointestinal: no abdominal pain, no nausea and no vomiting Physical Exam Constitutional: well developed, well nourished and + obese; no acute distress and no altered mental status ENMT: external ear and nose normal, oropharynx normal Respiratory: normal respiratory effort, lungs clear to auscultation Cardiovascular: Rate/Rhythm: regular rate and regular rhythm Heart Sounds: normal S1 and normal S2; no murmur Vessels: posterior tibial pulses present and dorsalis pedis pulses present; no JVD Extremities: no edema Gastrointestinal (Abdomen): Inspection/Auscultation: normal bowel sounds; abdomen not distended Percussion/Palpation: abdomen nontender and no hepatosplenomegaly Musculoskeletal: back: tender to palpation over right SI joint. right hip: no tenderness with flexion, internal rotation or external rotation. There is limited passive ROM however. Minimal tenderness over right trochanteric bursa. Left hip: similar ROM as compared to right hip. Skin: no rashes, warm and dry Neurologic: strength 5/5 x b/l LEs Psychiatric: A+Ox3, euthymic affect Results & Data Vital Signs (Past 12 Hours) Vital Signs Temp Pulse Pulse Resp BP BP Pulse Ox 09/21/19 20:07 37.1 C 84 20 116/76 95 09/21/19 16:35 96 09/21/19 15:51 92 H 09/21/19 15:25 37.1 C 100 H 18 113/68 93 09/21/19 10:52 37.2 C 83 18 99/62 L 92 Laboratory Results Laboratory Results - last 24 hr 09/20/19 09/21/19 09/21/19 20:36 06:17 06:17 WBC 5.68 RBC 4.73 Hgb 14.3 Hct 40.9 L MCV 86.5 MCH 30.2 MCHC 35.0 RDW Std Deviation 41.7 RDW Coeff of Danielito 13.1 Plt Count 115 L MPV 10.5 H Sodium 137 Potassium 3.3 L Chloride 108 H Carbon Dioxide 22 Anion Gap 7.0 BUN 16 Creatinine 0.76 Est Cr Clr Drug Dosing 94.7 Est GFR ( Amer) 107.1 Est GFR (Non-Af Amer) 92.4 BUN/Creatinine Ratio 20.5 H Glucose 235 H POC Glucose 228 H Calcium 8.7 Magnesium Prostate Specific Ag 18.500 H 09/21/19 09/21/19 09/21/19 06:17 07:31 12:04 WBC RBC Hgb Hct MCV MCH MCHC RDW Std Deviation RDW Coeff of Danielito Plt Count MPV Sodium Potassium Chloride Carbon Dioxide Anion Gap BUN Creatinine Est Cr Clr Drug Dosing Est GFR ( Amer) Est GFR (Non-Af Amer) BUN/Creatinine Ratio Glucose POC Glucose 236 H 226 H Calcium Magnesium 1.8 Prostate Specific Ag 09/21/19 09/21/19 16:33 16:35 WBC RBC Hgb Hct MCV MCH MCHC RDW Std Deviation RDW Coeff of Danielito Plt Count MPV Sodium Potassium Chloride Carbon Dioxide Anion Gap BUN Creatinine Est Cr Clr Drug Dosing Est GFR ( Amer) Est GFR (Non-Af Amer) BUN/Creatinine Ratio Glucose POC Glucose 358 H* 338 H* Calcium Magnesium Prostate Specific Ag PG Care Time/CCT Total # of Minutes Spent Total Time Spent with Patient: Total time spent is greater than 50% in coordination of care (as documented) at patient's floor/unit and/or counseling patient: (1) UTI (urinary tract infection) Urinary tract infection type: acute cystitis Hematuria presence: without hematuria Qualified Code(s): N30.00 - Acute cystitis without hematuria (2) Sepsis Sepsis acute organ dysfunction status: unspecified Sepsis type: sepsis due to unspecified organism Qualified Code(s): A41.9 - Sepsis, unspecified organism (3) BPH (benign prostatic hyperplasia) Lower urinary tract symptom presence: symptoms present Lower urinary tract symptom detail: incomplete bladder emptying Qualified Code(s): N40.1 - Benign prostatic hyperplasia with lower urinary tract symptoms; R39.14 - Feeling of incomplete bladder emptying (4) Prostatitis Prostatitis type: unspecified Qualified Code(s): N41.9 - Inflammatory disease of prostate, unspecified (5) Hyperglycemia due to type 2 diabetes mellitus Diabetes mellitus exterminator helper termite insulin use: without mcc use Qualified Code(s): E11.65 - Type 2 diabetes mellitus with hyperglycemia (6) GERD (gastroesophageal reflux disease) Esophagitis presence: esophagitis presence not specified Qualified Code(s): K21.9 - Gastro-esophageal reflux disease without esophagitis (7) HTN (hypertension) Hypertension type: essential hypertension Qualified Code(s): I10 - Essential (primary) hypertension (8) Hyperlipidemia Hyperlipidemia type: mixed hyperlipidemia Qualified Code(s): E78.2 - Mixed hyperlipidemia
[2019-09-21] MEDS: INSULIN GLARGINE SOLOSTAR 100 UNITS/ML 3 ML PEN SC SCH (20:36)
[2019-09-21] MEDS: FINASTERIDE 5 MG TAB PO SCH (20:41)
[2019-09-21] MEDS: TAMSULOSIN HCL 0.4 MG CAP PO SCH (20:41)
[2019-09-22] MEDS ORDERED: ZOLPIDEM TARTRATE 5 MG TAB PO PRN (00:58)
[2019-09-22 07:13] LABS: Hematocrit (blood only) 37.9 % (42-52); Hemoglobin 13.6 g/dL (14.0-18.0); Mean Corpuscular Hemoglobin 30.6 pg (25-34); Mean Corpuscular Hgb Conc 35.9 g/dL (32-36); Mean Corpuscular Volume 85.4 fL (80-100); Mean Platelet Volume 9.8 fL (7.4-10.4); Platelet Count 121 K/uL (130-400); RDW Coefficient of Variation 13.1 % (11.5-14.5); Red Blood Count 4.44 M/uL (4.7-6.1); White Blood Count 6.36 K/uL (4.8-10.8)
[2019-09-22 07:45] LABS: BUN Creatinine Ratio 26.8 (10-20); Calcium 8.7 mg/dl (8.5-10.1); Creatinine Clr Calc Pharmacy 98.1 ml/min; Est GFR (African American) 108.3; Est GFR (Non-African American) 93.5; Potassium 3.4 mmol/L (3.5-5.1)
--- NOTE | 2019-09-22 08:12 | Urology Progress Note ---
Date of Service September 22, 2019 Assessment & Plan (1) UTI (urinary tract infection): 69yo M with complicated E.coli UTI, prostatitits, urinary retention. Pt is clinically improving, afebrile x36 hours. Pt is significantly bothered by catheter overnight, bladder spams. Discussed options, pt would like to attempt TOV today. Catheter removed by myself at bedside at 0830AM. Discussed plan with nursing, if unable to void by 1PM - bladder scan pt and contact myself. Likely will need to replace catheter at that time. If pt able to spontaneously void, will plan for nursing visit with PVR on or Friday as outpatient. Continue tamsulosin and finasteride Plan for Cipro x28 days course for prostatitis. Depending on outcome of passive TOV, pt okay to discharge later today from perspective. Thank you for allowing us to participate in the acute care of Mr. Asencio. Please reconsult us with additional questions, concerns or changes in patient status. Subjective 69yo M with complicated E.Coli UTI, prostatitis, urinary retention Pt unfortunately had a difficult night last night with pain issues related to catheter. Likely bladder spasm with urinary leaking. Relates that he cannot sit due to pain, must either stand or lay down. Draining clear yellow Exam unremarkable. Afebrile x36 hours Review of Systems Review of Systems: All systems reviewed & are unremarkable except as noted in HPI & below Physical Exam Constitutional: no acute distress and not ill appearing Eyes: no nystagmus ENMT: Ears: no hearing impairment Neck: trachea midline Respiratory: no respiratory distress and no cough Cardiovascular: Vessels: no JVD Chest (Breasts): Chest: normal inspection of chest Gastrointestinal (Abdomen): Inspection/Auscultation: abdomen not distended and no abdominal edema Percussion/Palpation: abdomen soft; abdomen nontender prakash intact, draining clear yellow bladder nontender on palpation Musculoskeletal: Head/Neck/Chest: normocephalic and head atraumatic Skin: no rashes, warm and dry Neurologic: awake; not confused and not obtunded Psychiatric: Orientation: alert and oriented x 3 Eye Contact: good eye contact Affect: no depressed affect Genitourinary: bladder normal to inspection; no CVA tenderness Lymphatic: no lymphadenopathy and no lymphedema Results & Data Vital Signs (Past 12 Hours) Vital Signs Temp Pulse Pulse Resp BP BP Pulse Ox 09/22/19 07:18 36.8 C 99 H 18 127/83 97 09/22/19 04:00 36.9 C 81 20 121/80 95 09/22/19 01:10 86 09/21/19 23:00 37.2 C 76 18 133/84 96 PG Care Time/CCT Total # of Minutes Spent Total Time Spent with Patient: Total time spent is greater than 50% in coordination of care (as documented) at patient's floor/unit and/or counseling patient: (1) UTI (urinary tract infection) Hematuria presence: without hematuria Urinary tract infection type: acute cystitis Qualified Code(s): N30.00 - Acute cystitis without hematuria
[2019-09-22] MEDS ORDERED: POTASSIUM CHLORIDE 20 MEQ TABCR PO STA (08:44)
[2019-09-22] MEDS ORDERED: CIPROFLOXACIN 500 MG TAB PO SCH (09:00)
[2019-09-22] MEDS: HEPARIN SOD 5,000 UNIT/0.5 ML VIAL SQ SCH (09:09)
[2019-09-22] MEDS: INSULIN ASPART 100 UNITS/ML 3 ML PEN SC SCH ×2 (09:09→13:40)
[2019-09-22] MEDS: INSULIN GLARGINE SOLOSTAR 100 UNITS/ML 3 ML PEN SC SCH (09:10)
[2019-09-22] MEDS: LACTOBACILLUS ACIDOPHILUS (FLORANEX) TAB PO SCH ×2 (09:11→13:41)
[2019-09-22] MEDS: GABAPENTIN 300 MG CAP PO SCH (09:14)
[2019-09-22] MEDS: MAGNESIUM OXIDE 400 MG TAB PO SCH (09:14)
[2019-09-22] MEDS: MULTIVITAMIN TAB PO SCH (09:14)
[2019-09-22] MEDS: ATORVASTATIN 20 MG TAB PO SCH (09:14)
[2019-09-22] MEDS: AMLODIPINE BESYLATE 5 MG TAB PO SCH (09:15)
[2019-09-22] MEDS: PANTOprazole 40 MG TAB PO SCH (09:15)
[2019-09-22] MEDS: CYANOCOBALAMIN 500 MCG TABLET (VITAMIN B-12) PO SCH (09:15)
[2019-09-22] MEDS: POTASSIUM CHLORIDE 20 MEQ TABCR PO SCH ×2 (09:32→13:40)
--- NOTE | 2019-09-22 16:17 | Discharge Summary ---
Date of Service date of admission - September 19, 2019 date of discharge - September 22, 2019 Admission HPI Per Admitting Provider The patient is a 69-year-old male with a past medical history including BPH, diabetes mellitus, GERD, hypertension, hyperlipidemia, obstructive sleep apnea, lumbar spinal stenosis with radiculopathy and tobacco use disorder, who was initially seen in emergency department last evening with fevers, chills, dysuria, and urinary frequency. He was given the option of being managed in the hospital but he preferred to go home on antibiotics. He continued to have worsening symptoms and increasing temperature throughout the day today; therefore he presented again to the emergency department tonight. Urine culture from 09/18/19 is growing e.coli. Principal Diagnosis sepsis 2nd to e.coli UTI and prostatitis Discharge Exam Constitutional well developed, well nourished and + obese; no acute distress and no altered mental status ENMT external ear and nose normal, oropharynx normal Respiratory normal respiratory effort, lungs clear to auscultation Cardiovascular Rate/Rhythm: regular rate and regular rhythm Heart Sounds: normal S1 and normal S2; no murmur Vessels: posterior tibial pulses present and dorsalis pedis pulses present; no JVD Extremities: no edema Gastrointestinal (Abdomen) Inspection/Auscultation: normal bowel sounds; abdomen not distended Percussion/Palpation: abdomen nontender and no hepatosplenomegaly Skin no rashes, warm and dry Psychiatric A+Ox3, euthymic affect Discharge Data Allergies Allergy/AdvReac Type Severity Reaction Status Date / Time No Known Drug Allergies Allergy Unknown . Verified 09/19/19 17:59 Consultations [facility] Urology PT, Diabetes Education [facility] Course (1) UTI (urinary tract infection): Complicated by prostatitis and sepsis. 2nd to e.coli. Resolved with IV antibiotic therapy and time. Initially received rocephin; transitioned to PO cipro BID prior to discharge. Plan for 28-day treatment course in light of complicating prostatitis (see below). Patient had significant urinary retention and prakash was placed early on during his stay. It was removed the AM of discharge and PVR was <50. (2) Sepsis: Sepsis due to UTI/prostatitis - improving/resolving. Blood cx's from 09/18/19 were negative. Patient remained hemodynamically stable while hospitalized. (3) Prostatitis: Highly suspicious given the markedly elevated PSA in the context of his sepsis/UTI (PSA 18.5, as opposed to <2 just a few weeks ago). Will Rx for prostatitis with 28-day course of cipro BID. Seen by urology who concurred with a diagnosis of prostatitis. He will have f/u in the urology clinic post-d/c. (4) BPH (benign prostatic hyperplasia): With urinary retention. PVRs were 400-450cc early on in his stay. Prakash placed on 09/20/19; successfully removed on 09/22/19. Cont alpha anand and finasteride. Urology follow-up post-d/c advised. (5) Hyperglycemia due to type 2 diabetes mellitus: A1c is nearly 10%. Patient reports multiple medrol dosepacks this fall for his back and hip. In fact he was on steroids up until the weekend prior to admission. Hyperglycemia likely combination of stress from sepsis/UTI, the recent steroids, and overall poorly controlled T2DM. Patient required copious amounts of insulin (lantus and novolog) just to bring his sugars into the low 200s. It was recommended that, at a minimum, he take a shot of 24-hour insulin at home. He required considerable encouragement to agree to insulin but ultimately he was willing to do so. He was seen by the DM educator for his uncontrolled T2DM as well. At discharge the following were recommended - * lantus 50 units SC qam * metformin 500mg BID * discontinuation of sulfonylurea use (6) GERD (gastroesophageal reflux disease): Cont PPI daily (7) HTN (hypertension): Continue norvasc Controlled (8) Hyperlipidemia: Continue atorvastatin daily (9) KATELYN (obstructive sleep apnea): CPAP at bedtime (10) Neurogenic claudication due to lumbar spinal stenosis: Status post lumbar back surgery by Dr. Galeas late June 2019. L4-L5 decompression for spinal stenosis. Patient c/o pain in his right low back/buttock with radiation to the posterior right leg intermittently throughout his stay. He follows with [facility] pain management. In fact he was to have intra-articular right hip injection the week of this admission. However, his reported symptoms during the stay seemed more consistent with his lumbar DJD. I recommended he reschedule his visit with [facility] pain management to address these issues. (11) Thrombocytopenia: Platelet count was 108 early in stay. Rebounded to 121 on day of discharge. Review of EMR shows his platelet count usually runs low-normal at about 150. Suspect acute drop was due to sepsis. He should have a repeat CBC at time of hospital follow-up for stability. (12) Bilateral hip joint arthritis: Pain meds prn. Total Time Total Time Spent Total Time Spent (In Minutes): 45 Discharge Plan Discharge Items Patient Disposition: Home - Self-Care Reason For Visit: Urinary tract infection Discharge Diagnosis: 1. Urinary tract infection with prostatitis - improving 2. Difficulty voiding/urinating due to the prostatitis/urinary tract infection - improving 3. Uncontrolled type 2 diabetes Activity: Resume your previous activity Activity Comment: gradually increase your activities over the next 3-4 days Driving/Machine Use: Resume 1 day after discharge Non-emergency contact: Primary Care Provider and Urologist Call non-emergency contact if: you have any medication questions, your symptoms worsen and you have a fever Follow-up/Referrals: Nathanael George MD [Physician] - (see Dr George within 2 weeks for your prostate) Claude Montez MD [Primary Care Provider] - 09/27/19 11:10 am (Please, follow up with Dr. Montez on FridaySeptember 27 at 11:10 am. *If you need to change this appointment, call the office at [phone].) Diet: Carb Consistent or DM2 and Heart Healthy Addtl Attending Provider Instructions: You were admitted for urinary tract infection and sepsis. The word sepsis means that the infection affected you systemically (high fevers, weakness, etc). You did NOT, however, have infection in the bloodstream. You improved with IV antibiotics and time. The urology team saw you in consult and felt that, in addition to the urinary tract infection, you also had prostate gland infection (also known as "prostatitis"). Because of the UTI/prostatitis/enlarged prostate you temporarily needed a catheter. This was discontinued on 09/22 and you are urinating ok at this time. We also had to add insulin for control of your diabetes. It is likely that the recent steroids and your infection have contributed to the high blood sugars. You were seen by the art educator for your diabetes. Recommendations - 1. cipro antibiotic 500mg twice daily for 28 days. This is for UTI/prostatitis. 2. saccaromyces probiotic 1 capsule daily for 30 days. This may help prevent diarrhea from the antibiotic. 3. start metformin 500mg twice daily for your diabetes. Take this medication with food. 4. start lantus insulin - 50 units once daily every morning. Be sure to rotate the site of the injection over your abdominal wall over time. Do not inject the same area over and over again. 5. STOP your glimepiride that you had been taking for your diabetes. 6. check your sugar twice daily if possible; take it every morning and at least 1 other time during the day. Write these values down and show these to your family doctor. Follow-up - see separate section also follow-up with your orthopedic surgeon for your back/hip Return to [facility] if - * you have recurrent fevers over 100.5 degrees * you develop severe diarrhea * you have worsening abdominal pain, pelvic pain, or difficulty urinating * you have severely uncontrolled blood sugars consistently (sugars greater than 300 consistently) * any other concerns Pending Studies at Discharge: No Stand-Alone Forms: My [facility], Smoking Cessation Medications and DC Order Prescriptions: New ciprofloxacin HCl 500 mg Tablet 500 mg PO BID 28 Days Qty: 56 RF: 0 Lantus Solostar U-100 Insulin 100 unit/mL (3 mL) Insulin Pen 50 units SC DAILY Qty: 15 RF: 2 metformin 500 mg tablet 500 mg PO BID Qty: 60 RF: 2 (DME) pen needle, diabetic [Pen Needle] 31 gauge x 5/16" needle See Rx Instructions .ROUTE .MEDSUPPLY Qty: 100 RF: 2 Saccharomyces boulardii 250 mg capsule 250 mg PO DAILY Qty: 30 RF: 0 Continued multivitamin Tablet 1 tab PO QAM RF: 0 atorvastatin [Lipitor] 20 mg Tablet 20 mg PO QAM RF: 0 amlodipine [Norvasc] 10 mg Tablet 10 mg PO QAM RF: 0 omeprazole 20 mg Capsule,Delayed Release(Dr/Ec) 20 mg PO 3XWK RF: 0 magnesium 250 mg Tablet 250 mg PO QAM RF: 0 tamsulosin [Flomax] 0.4 mg Capsule 0.4 mg PO HS RF: 0 gabapentin [Neurontin] 100 mg Capsule 300 mg PO QAM RF: 0 finasteride [Proscar] 5 mg Tablet 5 mg PO HS RF: 0 cyanocobalamin (vitamin B-12) 1,000 mcg Capsule 1,000 mcg PO QAM RF: 0 phenazopyridine [Pyridium] 200 mg tablet 200 mg PO TID PRN (Reason: Pain) RF: 0 Discontinued cefdinir 300 mg capsule 300 mg PO BID 10 Days Qty: 20 RF: 0 glimepiride [Amaryl] 4 mg Tablet 4 mg PO QAM RF: 0 Discharge Orders: Discharge Order (Routine); Ordered 09/22/19 Ordered By: Luis Wade/Other Patient Handouts: Diabetes Radioactivity Technician Complications, Diabetes Healthy Meals, Diabetes Carbs, Diabetes Exercise Benefits, Diabetes Activity Tips, Diabetes Living Life, A1C Admission Data Admit Date/Time: 09/19/19 20:14 Attending Provider: Luis Prabhakar Admit Provider: Jeff Dillon Primary Care Provider: Claude Montez Other Providers: Jeff Dillon ; Nathanael George Other Interventions: Discharge Summary Assessment (RN) Last Done: 09/22/19 16:41 DC Date/Time DO NOT enter until pt leaves facility: 09/22/19 17:06
== END 2019-09-22 17:06 | disposition home or self-care (01) | DRG 872 ==
LOC: ED 17:20 → SUATTDRO 20:14 → 2N 20:14